=== PATIENT | female | born 1950 | race Caucasian/White ===

== ENCOUNTER 2020-08-15 06:28 | Day surgery (SDC) | payer MEDICARE, SELFPAY ==
[2020-08-09 13:36] VITALS: BMI 30.3
--- NOTE | 2020-08-14 11:50 | HO.ANESPROP2 ---
HPI - Anesthesia Eval Consult details Narrative: 69yo F for colonoscopy PMFSH Past Medical History Medical History Arthritis Dental crowns present Diabetes Elevated cholesterol GERD (gastroesophageal reflux disease) History of fibromyalgia HTN (hypertension) Wears dentures Surgical History Surgical History H/O colonoscopy History of ankle surgery Hx of section Hx of hand surgery Social History Social History Smoking Status: Never smoker Use of substances other than those prescribed or required for medical reasons: No Have you been hit, kicked, punched, or otherwise hurt by someone within the past year? If so, by whom?: No Advance Directives Information Provided: No Recently lost weight without trying: No Meds Allergies Allergy/AdvReac Type Severity Reaction Status Date / Time cortisone Allergy Itching Verified 08/09/20 13:51 Home Medications Medication Instructions Recorded Confirmed Type Januvia 100 mg PO DAILY 08/09/20 08/09/20 History albuterol sulfate [Ventolin HFA] 2 puff INHALATION Q4-6H PRN 08/09/20 08/09/20 History cholecalciferol (vitamin D3) 25 mcg PO DAILY 08/09/20 08/09/20 History [Vitamin D3] fluticasone propionate 220 mcg INHALATION BID 08/09/20 08/09/20 History loratadine 10 mg PO DAILY 08/09/20 08/09/20 History losartan 50 mg PO DAILY 08/09/20 08/09/20 History metformin 1,000 mg PO BID 08/09/20 08/09/20 History rosuvastatin [Crestor] 20 mg PO DAILY 08/09/20 08/09/20 History Exam Exam Date and Time: August 14, 2020 1150 Height,Weight and Vital Signs: Height 5 ft 5.5 in Weight 83.915 kg Pertinent Lab Results Pertinent Lab Results: Laboratory Tests 04/15/20 04/15/20 12:55 12:55 WBC 9.9 Hgb 13.6 Hct 42.0 Plt Count 286 Sodium 139 Potassium 4.6 Chloride 101 BUN 15 Creatinine 1.03 Assessment and Plan Assessment Anesthesia Assessment: Chart Reviewed
[2020-08-15 07:04] VITALS: BP 143/68; PULSE 64; RESP 16; TEMP 35.6; O2SAT 99
[2020-08-15 07:07] VITALS: BMI 29.5
[2020-08-15] MEDS: Lactated Ringers 1,000 ML 100 ML IVCONT (07:07)
--- NOTE | 2020-08-15 07:49 | P.CONAN_ITS ---
[facility] Past Medical History Medical History Arthritis Dental crowns present Diabetes Elevated cholesterol GERD (gastroesophageal reflux disease) History of fibromyalgia HTN (hypertension) Wears dentures Functional capacity: independent ambulation Surgical History Surgical History H/O colonoscopy History of ankle surgery Hx of section Hx of hand surgery Social History Social History Smoking Status: Never smoker Use of substances other than those prescribed or required for medical reasons: No Have you been hit, kicked, punched, or otherwise hurt by someone within the past year? If so, by whom?: No Advance Directives Information Provided: No Recently lost weight without trying: No Meds Allergies Allergy/AdvReac Type Severity Reaction Status Date / Time cortisone Allergy Itching Verified 08/09/20 13:51 Home Medications Medication Instructions Recorded Confirmed Type albuterol sulfate [Ventolin HFA] 2 puff INHALATION Q4-6H PRN 08/09/20 08/09/20 History cholecalciferol (vitamin D3) 25 mcg PO DAILY 08/09/20 08/09/20 History [Vitamin D3] fluticasone propionate [Flovent] 220 mcg INHALATION BID 08/09/20 08/09/20 His tory loratadine 10 mg PO DAILY 08/09/20 08/09/20 History losartan 50 mg PO DAILY 08/09/20 08/09/20 History metformin 1,000 mg PO BID 08/09/20 08/09/20 History naproxen 500 mg PO BID 08/09/20 08/09/20 History rosuvastatin [Crestor] 20 mg PO DAILY 08/09/20 08/09/20 History sitagliptin [Januvia] 100 mg PO DAILY 08/09/20 08/09/20 History Exam Exam Date and Time: August 15, 2020 0749 Height,Weight and Vital Signs: Height 5 ft 5.5 in Weight 81.647 kg Last Vital Signs Temp 96.1 F L 08/15/20 07:04 Pulse 64 08/15/20 07:04 Resp 16 08/15/20 07:04 BP 143/68 H 08/15/20 07:04 Pulse Ox 99 08/15/20 07:04 Airway Mallampati Class: I TM Dist: >3cm Neck ROM: Full Partial: Upper and Lower Loose/Missing/Broken Teeth: No Heart: rrr Lungs: clear Assessment and Plan Final Anesthetic Review NPO: Yes ASA Class: II Final Preanesthetic Review: No Changes in Pt Med Stat, Meds/Allgs Chart Reviewed, Consent Obtained/Reviewed and Anes Risks/Benef Reviewed Patient Risk: Intermediate Procedure Risk: Low Anesthetic Plan Anesthetic Plan: MAC: Disposition: Standard PACU
--- NOTE | 2020-08-15 07:51 | P.HPSUR_ITS ---
Pre-Procedural Eval Section B Chief Complaint: HX OF POLYPS Details of Present Illness: Colon cancer screening/Hx of Tubular adenomas Relevant Family History (Specify if Yes): No Relevant Social History: None Present Medications: see Short Stay Collaborative assessment Medical History: Significant History (Asthma, Diabetes, Hypertension) History of Previous Operations: Relevant previous surgery/procedure and date(s) (Csection x 2) Allergies: Allergies Allergy/AdvReac Type Severity Reaction Status Date / Time cortisone Allergy Itching Verified 08/09/20 13:51 Review of Systems Sugical H&P ROS: Negative: Constitution, Cardiovascular, Respiratory and Gastr ointestinal Exam Surgical H&P Exam: Normal: HEENT, Normal: Heart, Normal: Lungs, Normal: Extremities and Normal: Abdomen Plan Diagnosis/Plan: Unchanged Patient has been examined and remains a candidate for the planned procedure--yes
[2020-08-15 09:14] VITALS: BP 140/69; PULSE 62; RESP 12; TEMP 36.4; O2SAT 97
[2020-08-15 09:15] LABS: Glucose, Whole Blood 112 mg/dL (60-115)
[2020-08-15 09:29] VITALS: BP 135/67; PULSE 58; RESP 13; TEMP 36.4; O2SAT 94
--- NOTE | 2020-08-15 09:34 | PM.PROC ---
Brief Operative Note Date of procedure: 08/15/20 Pre-op diagnosis: Colon cancer screening, hx of Tubular adenomas Post-op diagnosis: other (Colonic polyps, Diverticulosis, 1+ internal hemorrhoids.) Procedure: COLONOSCOPY WITH EXCISIONAL POLYPECTOMIES X 3 (CBF); HSP HEX(ERBE), EPI INJECTION-4CC, SPOT TATOO-3-4CC, RESOLUTION CLIPPING START-8:16--end--9:08 Anesthesia: MAC (MD CAM) Surgeon: Elicia Ambrose Estimated blood loss (mL): 5 Pathology: other (ASC COLON, TRANSVERSE COLON, 25CM AND LARGEST @ 19CM) Condition: stable Disposition: PACU
--- NOTE | 2020-08-15 10:15 | HO.POSTANES ---
Post Anesthesia Evaluation Post Anesthesia Evaluation Vital Signs: Vital Signs Temp Pulse Resp BP Pulse Ox 08/15/20 09:29 97.6 F 58 13 135/67 94 08/15/20 09:14 97.6 F 62 12 140/69 H 97 08/15/20 07:04 96.1 F L 64 16 143/68 H 99 Anesthesia: Monitored Mental Status: Awake Pain Control: Satisfactory Nausea/Vomiting: None Hydration: Adequate Anesthesia-Related Issues: No Anes. Related Issues
--- NOTE | 2020-08-16 02:46 | OP_ITS ---
SURGEON: Elicia Ambrose MD PREOPERATIVE DIAGNOSIS: History of tubular adenomas, specifically in 2006 Dr. Swift did a colonoscopy and one of the polyps was a significant sized tubular adenoma with high-grade dysplasia. Repeat colonoscopy in 2012 done by myself was negative for any polyps. PROCEDURE PERFORMED: Colonoscopy with excisional polypectomies x3 with cold biopsy forceps, hot snare polypectomy using ERBE cautery and hexagonal snare. Epinephrine injection of 4 mL pre-polypectomy. Resolution clipping of polyp base. Spot ink tattooing of 3 mL. ESTIMATED BLOOD LOSS: Minimal. COMPLICATIONS: Without. ANESTHESIA: Monitored by Dr. Finch, anesthesiologist. ASSISTANTS: No photo studio assistant. SPECIMENS: Ascending colon polyp, transverse colon polyp. Polyp at 25 cm, diminutive, and the larger polyp removed requiring multiple modality approach was at 19 cm. POSTOPERATIVE DIAGNOSES: Colonic polyps x4, diverticulosis, 1+ internal hemorrhoids. TRADEMARK PARALEGAL: Dr. Ambrose. FINDINGS: Digital rectal exam revealed no specific lesion. Sphincter tone was adequate. Video colonoscope was introduced without difficulty. It was navigated into the rectosigmoid sigmoid on up through somewhat tortuous sigmoid colon into the descending, transverse, ascending colon down into the cecal cap. Appendiceal orifice was seen. Ileocecal valve was well seen. No mucosal abnormalities were appreciated. Specimens were removed in the locations listed under specimens. Start time of this procedure, 08:16, End time 9:08 a.m. Note, this is a complex procedure with multiple polypectomies and a fairly complex polypectomy removal at 19 cm. COMMENT: Interestingly the complex polyp removed in 2006 was in about the same region of this. It was described as being located approximately 20 cm in the sigmoid. PLAN: Current recommendations to repeat asymptomatic screening will be 5 years. Adjustments may be made to this depending on histology. (All polyps tubular adenomas with no high grade dysplasia.) Followup: patient will be either by Televisit or office visit anywhere from 10 days to 4 weeks. GRAFT OR IMPLANTS: No grafts or implants. Although Resolution clips x2 occasionally is listed as implants they generally fall off within 48 to 72 hours. CONDITION: Postprocedure, stable. Elicia Ambrose MD MEN/MODL / [id number] [facility]ITALMarty
== END 2020-08-15 10:21 | disposition home or self-care (01) ==
PROVIDERS: PCP Internal Medicine; Visit Provider Internal Medicine Gastroenterology
PROC: 0DJD8ZZ Inspection of Lower Intestinal Tract, Via Natural or Artificial Opening Endoscopic (ICD-10-PCS; CPT 45378; principal; 2020-08-15 07:30)
DX: Z12.11 Encounter for screening for malignant neoplasm of colon (principal); Z86.010 Personal history of colon polyps; D12.2 Benign neoplasm of ascending colon; D12.3 Benign neoplasm of transverse colon; D12.5 Benign neoplasm of sigmoid colon; K57.30 Diverticulosis of large intestine without perforation or abscess without bleeding; K64.8 Other hemorrhoids; J45.909 Unspecified asthma, uncomplicated; I10 Essential (primary) hypertension; K21.9 Gastro-esophageal reflux disease without esophagitis; E11.9 Type 2 diabetes mellitus without complications; E78.00 Pure hypercholesterolemia, unspecified; Z79.51 Long term (current) use of inhaled steroids; Z88.8 Allergy status to other drugs, medicaments and biological substances; Z79.84 Long term (current) use of oral hypoglycemic drugs; Z79.899 Other long term (current) drug therapy
CPT/HCPCS: 45385; 45380; 45381; 82947; 88305; J0171

== ENCOUNTER → 2020-09-05 08:25 | Outpatient (BNVA) | payer MEDICARE, SELFPAY | PROVIDERS: PCP Internal Medicine; Referring Provider Internal Medicine; Visit Provider Physician Assistant | DX: D12.2 Benign neoplasm of ascending colon (principal); D12.3 Benign neoplasm of transverse colon; D12.6 Benign neoplasm of colon, unspecified; Z98.890 Other specified postprocedural states | CPT/HCPCS: 99212 ==

== ENCOUNTER 2020-10-10 09:27 | Outpatient (REF) | payer MEDICARE, SELFPAY ==
[2020-10-10 11:02] LABS: Alanine Aminotransferase 23 U/L (0-31); Albumin Level 4.5 g/dL (3.5-5.0); Alkaline Phosphatase 102 U/L (39-117); Anion Gap 14 (12-20); Aspartate Amino Transferase 22 U/L (5-31); Bilirubin Total 0.6 mg/dL (0.0-1.0); Blood Urea Nitrogen 17 mg/dL (9-16); Calcium 9.1 mg/dL (8.4-10.2); Carbon Dioxide 28 mmol/L (22-29); Chloride 102 mmol/L (96-108); Cholesterol 239 mg/dL; Estimated Glomerular Filt Rate 59; Glucose Random 140 mg/dL (60-115); HDL Cholesterol 55 mg/dL; LDL Cholesterol Calculated 135 mg/dl; Potassium 4.8 mmol/l (3.3-5.1); Sodium 139 mmol/L (135-145); Total Protein 7.4 g/dL (6.5-8.0); Triglycerides 249 mg/dL
[2020-10-10 11:31] LABS: Estimated Average Glucose 148 mg/dL; Hemoglobin A1c % 6.8 %
== END 2020-10-10 09:28 | disposition home or self-care (01) ==
LOC: HO.LAB 09:27
PROVIDERS: PCP Internal Medicine; Visit Provider Internal Medicine
DX: E11.9 Type 2 diabetes mellitus without complications (principal); E78.00 Pure hypercholesterolemia, unspecified; M15.9 Polyosteoarthritis, unspecified; Z86.010 Personal history of colon polyps
CPT/HCPCS: 80053; 80061; 83036

== ENCOUNTER 2020-12-31 10:13 | Outpatient (REF) | payer MEDICARE, SELFPAY ==
--- NOTE | ~2020-12-31 | MM_ITS ---
EXAMINATION: MM SCREENING DIGITAL BREAST TOMOSYNTHESIS, BILATERAL CLINICAL INFORMATION: Screening. Asymptomatic. The lifetime risk of breast cancer based on the Tyrer-Cuzick Model is 4%. COMPARISON: Mammography: 11/28/2019, 11/22/2018, 10/16/2017 TECHNIQUE: Digital breast tomosynthesis is performed in both the craniocaudal and mediolateral oblique views along with computer-aided detection (CAD). Synthesized 2D images are generated from the tomosynthesis. Additional left MLO view is provided. FINDINGS: The breasts are heterogeneously dense, which may obscure small masses (ACR BI-RADS breast composition Category c). Breast tissue composition borders on average fibroglandular. Parenchymal pattern is similar to prior studies. There are no significant masses, abnormal calcifications, or other abnormalities. MM/MM tomosynthesis screening BI IMPRESSION: No mammographic evidence of malignancy. ASSESSMENT: BI-RADS 1: Negative RECOMMENDATION: Routine annual mammography screening. This patient's information was entered into a reminder system with a target due date for their next mammogram.
[2020-12-31 11:30] LABS: Estimated Average Glucose 154 mg/dL
[2020-12-31 11:49] LABS: Alanine Aminotransferase 20 U/L (0-31); Albumin Level 4.5 g/dL (3.5-5.0); Alkaline Phosphatase 101 U/L (39-117); Anion Gap 11 (12-20); Aspartate Amino Transferase 21 U/L (5-31); Bilirubin Total 0.9 mg/dL (0.0-1.0); Blood Urea Nitrogen 16 mg/dL (9-16); Calcium 9.2 mg/dL (8.4-10.2); Carbon Dioxide 31 mmol/L (22-29); Chloride 102 mmol/L (96-108); Cholesterol 176 mg/dL; Estimated Glomerular Filt Rate 59; Glucose Random 169 mg/dL (60-115); HDL Cholesterol 57 mg/dL; LDL Cholesterol Calculated 82 mg/dl; Sodium 139 mmol/L (135-145); Total Protein 7.2 g/dL (6.5-8.0); Triglycerides 185 mg/dL
== END 2020-12-31 10:14 | disposition home or self-care (01) ==
LOC: HO.MAMMO 10:13
PROVIDERS: PCP Internal Medicine; Visit Provider Internal Medicine
DX: Z12.31 Encounter for screening mammogram for malignant neoplasm of breast (principal); E11.9 Type 2 diabetes mellitus without complications; E78.2 Mixed hyperlipidemia; I10 Essential (primary) hypertension; Z68.28 Body mass index [BMI] 28.0-28.9, adult
CPT/HCPCS: 36415; 77063; 77067; 80053; 80061; 83036

== ENCOUNTER → 2021-01-24 09:53 | Outpatient (BNVA) | payer MEDICARE, SELFPAY | PROVIDERS: PCP Internal Medicine; Visit Provider Orthopaedic Surgery | DX: M70.62 Trochanteric bursitis, left hip (principal); M70.61 Trochanteric bursitis, right hip | CPT/HCPCS: 20610; 99212; J1100 ==

== ENCOUNTER → 2021-03-12 13:34 | Outpatient (BNVA) | payer MEDICARE, SELFPAY | PROVIDERS: PCP Internal Medicine; Visit Provider Student in an Organized Health Care Education/Training Program | DX: M75.81 Other shoulder lesions, right shoulder (principal); M75.82 Other shoulder lesions, left shoulder | CPT/HCPCS: 99212 ==

== ENCOUNTER 2021-04-09 08:16 | Outpatient (REF) | payer MEDICARE, SELFPAY ==
[2021-04-09 09:06] LABS: MANUAL DIFF FLAG NO
[2021-04-09 09:19] LABS: Basophils Absolute Auto 0.1 X10*3/uL (0.0-0.2); Basophils Percent Auto 1.2 % (0-2); Eosinophils Absolute Auto 0.9 X10*3/uL (0.0-0.4); Eosinophils Percent Auto 8.5 % (0-4); Hematocrit 45.1 % (37-47); Hemoglobin 14.6 g/dl (12.0-16.0); Imm Gran Abs Auto 0.03 X10*3/uL (0.00-0.03); Imm Gran Pct Auto 0.3 % (0.0-0.4); Lymphocytes Absolute Auto 3.6 X10*3/uL (1.2-4.9); Lymphocytes Percent Auto 35.1 % (20-40); Mean Corpuscular HGB Conc 32.4 g/dl (31.0-35.0); Mean Corpuscular Hemoglobin 30.6 pg (27.0-33.0); Mean Corpuscular Volume 94.5 fL (80-98); Mean Platelet Volume 10.9 fL (9.4-12.3); Monocytes Absolute Auto 0.6 X10*3/uL (0.1-1.2); Monocytes Percent Auto 5.6 % (2-11); Neutrophils Percent Auto 49.3 % (45-73); Platelet Count 261 X10*3/uL (160-400); Red Blood Count 4.77 X10*6/uL (4.20-5.50); Red Cell Distribution Width 12.1 % (11.0-16.0); White Blood Count 10.2 X10*3/uL (4.8-10.8)
[2021-04-09 09:42] LABS: Alanine Aminotransferase 21 U/L (0-31); Albumin Level 4.7 g/dL (3.5-5.0); Alkaline Phosphatase 101 U/L (39-117); Anion Gap 16 (12-20); Aspartate Amino Transferase 23 U/L (5-31); Bilirubin Total 1.1 mg/dL (0.0-1.0); Blood Urea Nitrogen 16 mg/dL (9-16); Carbon Dioxide 26 mmol/L (22-29); Chloride 100 mmol/L (96-108); Estimated Glomerular Filt Rate 56; Glucose Random 173 mg/dL (60-115); Sodium 137 mmol/L (135-145); Total Protein 7.8 g/dL (6.5-8.0)
[2021-04-09 10:54] LABS: Creatinine Urine 214.05 mg/dL; Microalbum/Creatinine Ratio Ur 16.3 ug/mg cr
[2021-04-09 10:55] LABS: Estimated Average Glucose 166 mg/dL; Hemoglobin A1c % 7.4 %
== END 2021-04-09 08:17 | disposition home or self-care (01) ==
LOC: HO.LAB 08:16
PROVIDERS: PCP Internal Medicine; Visit Provider Internal Medicine
DX: E11.9 Type 2 diabetes mellitus without complications (principal); E78.2 Mixed hyperlipidemia; H10.44 Vernal conjunctivitis; H92.01 Otalgia, right ear; I10 Essential (primary) hypertension
CPT/HCPCS: 36415; 80053; 82043; 83036; 85025

== ENCOUNTER 2021-08-04 11:28 | Outpatient (REF) | payer MEDICARE, SELFPAY ==
[2021-08-04 12:35] LABS: Estimated Average Glucose 154 mg/dL
[2021-08-04 12:51] LABS: Alanine Aminotransferase 23 U/L (0-31); Albumin Level 4.8 g/dL (3.5-5.0); Alkaline Phosphatase 89 U/L (39-117); Anion Gap 14 (12-20); Aspartate Amino Transferase 22 U/L (5-31); Bilirubin Total 0.8 mg/dL (0.0-1.0); Blood Urea Nitrogen 16 mg/dL (9-16); Calcium 10.1 mg/dL (8.4-10.2); Carbon Dioxide 27 mmol/L (22-29); Chloride 104 mmol/L (96-108); Estimated Glomerular Filt Rate > 60; Glucose Random 137 mg/dL (60-115); Potassium 5.5 mmol/L (3.3-5.1); Sodium 139 mmol/L (135-145); Total Protein 7.8 g/dL (6.5-8.0)
== END 2021-08-04 11:29 | disposition home or self-care (01) ==
LOC: HO.LAB 11:28
PROVIDERS: PCP Internal Medicine; Visit Provider Internal Medicine
DX: E11.9 Type 2 diabetes mellitus without complications (principal); E78.00 Pure hypercholesterolemia, unspecified; I10 Essential (primary) hypertension
CPT/HCPCS: 36415; 80053; 83036

== ENCOUNTER 2021-10-24 08:28 | Outpatient (REF) | payer MEDICARE, SELFPAY | END 2021-10-24 08:29 | disposition home or self-care (01) | LOC: HO.HOSX 08:28 | PROVIDERS: Visit Provider Physician Assistant | DX: Z13.89 Encounter for screening for other disorder (principal) ==

== ENCOUNTER → 2021-11-19 13:23 | Outpatient (BNVA) | payer MEDICARE, SELFPAY | PROVIDERS: PCP Internal Medicine; Visit Provider Physician Assistant | DX: M70.61 Trochanteric bursitis, right hip (principal); M70.62 Trochanteric bursitis, left hip | CPT/HCPCS: 20610; 99212; J1020 ==

== ENCOUNTER 2021-12-17 12:35 | Outpatient (REF) | payer MEDICARE, SELFPAY | END 2021-12-17 12:36 | disposition home or self-care (01) | LOC: HO.HOSX 12:35 | PROVIDERS: Visit Provider Physician Assistant | DX: Z13.89 Encounter for screening for other disorder (principal) ==

== ENCOUNTER 2022-01-16 10:38 | Outpatient (REF) | payer MEDICARE, SELFPAY ==
--- NOTE | ~2022-01-16 | MM_ITS ---
EXAMINATION: MM SCREENING DIGITAL BREAST TOMOSYNTHESIS, BILATERAL CLINICAL INFORMATION: Screening. Asymptomatic. The lifetime risk of breast cancer based on the Tyrer-Cuzick Model is 4%. COMPARISON: Mammography: 12/31/2020, 11/28/2019, 11/22/2018 TECHNIQUE: Digital breast tomosynthesis is performed in both the craniocaudal and mediolateral oblique views along with computer-aided detection (CAD). Synthesized 2D images are generated from the tomosynthesis. FINDINGS: The breasts are heterogeneously dense, which may obscure small masses (ACR BI-RADS breast composition Category c). There are no significant masses, abnormal calcifications, or other abnormalities. Breast tissue composition borders on average fibroglandular. Parenchymal pattern is similar to prior studies. No significant changes. MM/MM tomosynthesis screening BI IMPRESSION: No mammographic evidence of malignancy. ASSESSMENT: BI-RADS 1: Negative RECOMMENDATION: Routine annual mammography screening. This patient's information was entered into a reminder system with a target due date for their next mammogram.
== END 2022-01-16 10:39 | disposition home or self-care (01) ==
LOC: HO.MAMMO 10:38
PROVIDERS: Visit Provider Internal Medicine
DX: Z12.31 Encounter for screening mammogram for malignant neoplasm of breast (principal)
CPT/HCPCS: 77063; 77067

== ENCOUNTER 2022-02-04 13:39 | Outpatient (REF) | payer MEDICARE, SELFPAY ==
[2022-02-04 14:19] LABS: Estimated Average Glucose 220 mg/dL; Hemoglobin A1c % 9.3 %
[2022-02-04 14:31] LABS: Alanine Aminotransferase 73 U/L (0-31); Albumin Level 4.5 g/dL (3.5-5.0); Alkaline Phosphatase 126 U/L (39-117); Anion Gap 12 (12-20); Aspartate Amino Transferase 53 U/L (5-31); Blood Urea Nitrogen 15 mg/dL (9-16); Calcium 9.7 mg/dL (8.4-10.2); Carbon Dioxide 29 mmol/L (22-29); Chloride 99 mmol/L (96-108); Estimated Glomerular Filt Rate 51; Glucose Random 242 mg/dL (60-115); Sodium 135 mmol/L (135-145); Total Protein 7.6 g/dL (6.5-8.0)
== END 2022-02-04 13:40 | disposition home or self-care (01) ==
LOC: HO.LAB 13:39
PROVIDERS: PCP Internal Medicine; Visit Provider Internal Medicine
DX: E11.65 Type 2 diabetes mellitus with hyperglycemia (principal); S00.262D Insect bite (nonvenomous) of left eyelid and periocular area, subsequent encounter
CPT/HCPCS: 36415; 80053; 83036

== ENCOUNTER 2022-03-04 11:01 | Outpatient (REF) | payer MEDICARE, SELFPAY ==
--- NOTE | ~2022-03-04 | XR_ITS ---
EXAMINATION: XR BILATERAL HIPS WITH AP PELVIS CLINICAL INFORMATION: Pain COMPARISON: Previous x-rays 2015 and 2019 TECHNIQUE: AP view of the pelvis and 2 views of each hip were obtained. FINDINGS: Bone alignment is normal. No fracture or dislocation is seen. There is bilateral hip arthritis with osteophyte formation, right greater than left. Bones of the pelvis are normal. Soft tissues are normal.. XR/XR hips MELITA min 3V IMPRESSION: Bilateral hip arthritis, right greater than left.
--- NOTE | ~2022-03-04 | XR_ITS ---
EXAMINATION: XR SHOULDER, LEFT CLINICAL INFORMATION: Pain COMPARISON: Previous x-ray December 2014 TECHNIQUE: Three views of the left shoulder. FINDINGS: Bone alignment is normal. No fracture or dislocation is seen. The glenohumeral joint is normal. There is arthritis at the acromioclavicular joint. There is an undersurface acromial osteophyte. Soft tissues are unremarkable. XR/XR shoulder LT min 2V IMPRESSION: Degenerative changes.
--- NOTE | ~2022-03-04 | XR_ITS ---
EXAMINATION: XR SHOULDER, RIGHT CLINICAL INFORMATION: Pain COMPARISON: None TECHNIQUE: 3 views of the right shoulder. FINDINGS: Bone alignment is normal. No fracture or dislocation is seen. There are degenerative changes at the acromioclavicular joint and small undersurface acromial osteophyte. There are mild degenerative changes at the glenohumeral joint. Soft tissues are normal. XR/XR shoulder RT min 2V IMPRESSION: Degenerative changes.
== END 2022-03-04 11:02 | disposition home or self-care (01) ==
LOC: HO.XRAY 11:01
PROVIDERS: Absent Provider Physician Assistant; PCP Internal Medicine; Visit Provider Internal Medicine
DX: M16.0 Bilateral primary osteoarthritis of hip (principal); M25.511 Pain in right shoulder; M25.512 Pain in left shoulder
CPT/HCPCS: 73030; 73522

== ENCOUNTER → 2022-06-15 14:46 | Outpatient (BNVA) | payer MEDICARE, SELFPAY | PROVIDERS: PCP Internal Medicine; Visit Provider Internal Medicine Rheumatology | DX: M75.81 Other shoulder lesions, right shoulder (principal); M75.82 Other shoulder lesions, left shoulder | CPT/HCPCS: 20610; 99212 ==

== ENCOUNTER 2022-06-24 14:19 | Outpatient (REF) | payer MEDICARE, SELFPAY ==
[2022-06-24 14:48] LABS: MANUAL DIFF FLAG NO
[2022-06-24 15:00] LABS: Basophils Absolute Auto 0.1 X10*3/uL (0.0-0.2); Basophils Percent Auto 0.4 % (0-2); Eosinophils Percent Auto 0.2 % (0-4); Hemoglobin 14.9 g/dl (12.0-16.0); Imm Gran Abs Auto 0.11 X10*3/uL (0.00-0.03); Imm Gran Pct Auto 0.6 % (0.0-0.4); Lymphocytes Absolute Auto 3.6 X10*3/uL (1.2-4.9); Lymphocytes Percent Auto 18.4 % (20-40); Mean Corpuscular HGB Conc 33.1 g/dl (31.0-35.0); Mean Corpuscular Hemoglobin 30.4 pg (27.0-33.0); Mean Corpuscular Volume 91.8 fL (80.0-98.0); Mean Platelet Volume 10.6 fL (9.4-12.3); Monocytes Absolute Auto 1.2 X10*3/uL (0.1-1.2); Monocytes Percent Auto 6.1 % (2-11); Neutrophils Absolute Auto 14.5 x10*3/uL (2.0-8.3); Neutrophils Percent Auto 74.3 % (45-73); Platelet Count 317 X10*3/uL (160-400); Red Cell Distribution Width 12.2 % (11.0-16.0); White Blood Count 19.5 X10*3/uL (4.8-10.8)
[2022-06-24 15:29] LABS: Creatinine Urine 208.99 mg/dL; Microalbum/Creatinine Ratio Ur 86.1 ug/mg cr
[2022-06-24 15:29] LABS: Alanine Aminotransferase 41 U/L (0-31); Albumin Level 4.9 g/dL (3.5-5.0); Alkaline Phosphatase 112 U/L (39-117); Anion Gap 19 (12-20); Aspartate Amino Transferase 30 U/L (5-31); Bilirubin Total 0.9 mg/dL (0.0-1.0); Blood Urea Nitrogen 28 mg/dL (9-16); Calcium 10.1 mg/dL (8.4-10.2); Carbon Dioxide 23 mmol/L (22-29); Chloride 100 mmol/L (96-108); Cholesterol 259 mg/dL; Estimated Glomerular Filt Rate 38; Glucose Random 178 mg/dL (60-115); HDL Cholesterol 62 mg/dL; LDL Cholesterol Calculated 155 mg/dl; Potassium 5.4 mmol/L (3.3-5.1); Sodium 137 mmol/L (135-145); Total Protein 8.3 g/dL (6.5-8.0); Triglycerides 210 mg/dL
[2022-06-24 15:39] LABS: Estimated Average Glucose 186 mg/dL; Hemoglobin A1c % 8.1 %
[2022-06-24 15:45] LABS: Thyroid Stimulating Hormone 1.74 uIU/mL (0.32-4.0)
== END 2022-06-24 14:20 | disposition home or self-care (01) ==
LOC: HO.LAB 14:19
PROVIDERS: PCP Internal Medicine; Visit Provider Internal Medicine
DX: Z00.00 Encounter for general adult medical examination without abnormal findings (principal); E11.9 Type 2 diabetes mellitus without complications; I10 Essential (primary) hypertension; E78.00 Pure hypercholesterolemia, unspecified
CPT/HCPCS: 36415; 80053; 80061; 82043; 83036; 84443; 85025

== ENCOUNTER 2022-08-05 11:00 | Outpatient (RCR) | payer MEDICARE, OTHER, SELFPAY ==
[2022-07-13 10:10] VITALS: BP 149/88; PULSE 67; O2SAT 99
--- NOTE | 2022-07-13 12:13 | MHC.PT.EP ---
[facility] [place] Office [place] Office [place] Office [address] Chris Chapa [address] [phone] F: [phone] F: [phone] F: [phone] F: [phone] Physical Therapy Plan of Care Date of Evaluation: Date of Surgery: Diagnosis: BILAT SHOULDER LESIONS Assessment: 71 YO FEMALE REF TO PT WITH BILAT SH LESIONS, Rt > Lt- PROGRESSIVE x 5 YEARS AND TREATED PREVIOUSLY W PT AND INJECTIONS. MOST RECENT SH INJECTIONS , BILAT, ON 06/15/22. Pt IS RIGHT HAND DOMINANT AND SHE IS CURRENTLY RESIDING W HER SON- SHE NOTES HER SON ASSISTS HER WITH GROCERIES/ LIFTING/ MORE DEMANDING ADLs. OBJECTIVE DATA INCLUDES LIMITED CERV AROM/ MELITA SH ROM-Rt WORSE THAN Lt, MELITA POST RC/ SCAP MM WEAKNESS, DECR POSTURAL AWARENESS, AND PAIN IN Rt CERV/ PROX UE AND LEFT SH. FUNCTIONALLY, Pt POSES Rt UE AT SIDE W ELBOW FLEXED, SHE HAS DIFFIC SLEEPING AND HAS SIGNIF DIFFIC W IN/OOB MECHANICS, BATHING, LIFTING W Rt UE, WASHING HER HAIR, AND HOUSEWORK. Pt WOULD BENEFIT FROM PT TO ADDRESS THE ABOVE FINDINGS AND EASE BILAT SH PAIN WHILE MONITORING CERVICAL REGION ORIGIN OF Rt UE SXS. Frequency and Duration: The patient will be seen 2 x WK x 5 WKS Short Term Goals: *Pt'S CERV/ MELITA SH PAIN DECR TO 3-4 /10 W REG ADLs *Pt INDEP SELF-CORRECT POSTURE TO REDUCE CERVICAL AND MELITA SH MECH STRESS *Pt DEMON IMPROVED AAROM-> AROM MELITA SH AND IMPROVE CERV AROM *Pt DEMON INDEP BED MOB Retirement Goals: *Pt INDEP HEP PROGR AND SELF-SX MGMT STRATEGIES FOR CERV / MELITA SH Pt PERFORM REG ADLs W APPROP BODY MECH Pt ACHIEVE WFL AROM AND FUNCTIONAL STRENGTH IN MELITA SH COMPLEX Treatment Plan: Modalities to reduce pain, spasms and effusion. Manual therapy to restore motion and function. Therapeutic exercise to improve strength and flexibility. Neuromuscular re-education for posture and balance. Therapeutic activities to return to functional activities of daily living. Electronically signed by: Umu West,PT Please sign and return to therapist. Thank you for your referral.
--- NOTE | 2022-09-17 09:58 | MHC.PT.DC ---
[facility] [place] Office [place] Office [place] Office [address] Chris Chapa [address] [phone] F: [phone] F: [phone] F: [phone] F: [phone] Physical Therapy Discharge Report Diagnosis: BILAT SHOULDER LESIONS Date of Surgery: Date of Evaluation: 07/13/22 Date of Discharge: 08/10/22 Treatments to Date: 8 Cancellations to Date: 1 No Shows to Date: Discharge Status: Improved Function Patient Elected to Stop Discharge Summary: Pt WAS MOTIVATED AND PROGRESSING WELL IN PT, SHE HAS A THOROUGH HEP AND HER SXS WERE RESOLVING IN BILAT SH HER STRENGTH AND POSTURAL AWARENESS IMPROVED. SHE CANC HER LAST PT APPTS AND THEREFORE, A FORMAL REASSESSMENT WAS NOT PERFORMED. Electronically signed by: RAZ HORVATH,PT Please sign and return to therapist. Thank you for your referral.
== END 2022-09-17 09:59 | disposition home or self-care (01) ==
LOC: HO.PT 11:00
PROVIDERS: PCP Internal Medicine; Visit Provider Internal Medicine Rheumatology
DX: M75.81 Other shoulder lesions, right shoulder (principal); M75.82 Other shoulder lesions, left shoulder
CPT/HCPCS: 97162; 97530

== ENCOUNTER 2022-11-11 09:40 | Outpatient (REF) | payer MEDICARE, OTHER, SELFPAY ==
[2022-11-11 11:08] LABS: Estimated Average Glucose 148 mg/dL; Hemoglobin A1c % 6.8 %
[2022-11-11 11:26] LABS: Alanine Aminotransferase 27 U/L (0-31); Albumin Level 4.4 g/dL (3.5-5.0); Alkaline Phosphatase 93 U/L (39-117); Anion Gap 16 (12-20); Aspartate Amino Transferase 31 U/L (5-31); Bilirubin Total 0.7 mg/dL (0.0-1.0); Blood Urea Nitrogen 18 mg/dL (9-16); Calcium 9.6 mg/dL (8.4-10.2); Carbon Dioxide 27 mmol/L (22-29); Chloride 104 mmol/L (96-108); Cholesterol 207 mg/dL; Estimated Glomerular Filt Rate 47; Glucose Fasting 148 mg/dL (60-99); HDL Cholesterol 47 mg/dL; LDL Cholesterol Calculated 119 mg/dl; Potassium 4.7 mmol/L (3.3-5.1); Sodium 142 mmol/L (135-145); Total Protein 7.1 g/dL (6.5-8.0); Triglycerides 209 mg/dL
== END 2022-11-11 09:41 | disposition home or self-care (01) ==
LOC: HO.10HDL 09:40
PROVIDERS: Visit Provider Internal Medicine
DX: E11.65 Type 2 diabetes mellitus with hyperglycemia (principal); E78.00 Pure hypercholesterolemia, unspecified; N18.9 Chronic kidney disease, unspecified; R74.01 Elevation of levels of liver transaminase levels
CPT/HCPCS: 36415; 80053; 80061; 83036

== ENCOUNTER 2023-01-20 10:27 | Outpatient (REF) | payer MEDICARE, OTHER, SELFPAY ==
--- NOTE | ~2023-01-20 | MM_ITS ---
EXAMINATION: MM SCREENING DIGITAL BREAST TOMOSYNTHESIS, BILATERAL CLINICAL INFORMATION: Screening. Asymptomatic. The lifetime risk of breast cancer based on the Tyrer-Cuzick Model is 7%. COMPARISON: Mammography: 01/16/2022, 12/31/2020, 11/28/2019, 11/22/2018 TECHNIQUE: Digital breast tomosynthesis is performed in both the craniocaudal and mediolateral oblique views along with computer-aided detection (CAD). Synthesized 2D images are generated from the tomosynthesis. FINDINGS: The breasts are heterogeneously dense, which may obscure small masses (ACR BI-RADS breast composition Category c). There are no significant masses, abnormal calcifications, or other abnormalities. Parenchymal pattern is similar to prior studies. There is no developing density or architectural abnormality. The axilla and skin contours are unremarkable. No significant changes. MM/MM tomosynthesis screening BI IMPRESSION: No mammographic evidence of malignancy. ASSESSMENT: BI-RADS 1: Negative RECOMMENDATION: Routine annual mammography screening. This patient's information was entered into a reminder system with a target due date for their next mammogram.
== END 2023-01-20 10:28 | disposition home or self-care (01) ==
LOC: HO.MAMMO 10:27
PROVIDERS: PCP Internal Medicine; Visit Provider Internal Medicine
DX: Z12.31 Encounter for screening mammogram for malignant neoplasm of breast (principal)
CPT/HCPCS: 77063; 77067

== ENCOUNTER 2023-02-12 11:04 | Outpatient (REF) | payer MEDICARE, OTHER, SELFPAY ==
[2023-02-12 13:13] LABS: Alanine Aminotransferase 30 U/L (0-31); Albumin Level 4.7 g/dL (3.5-5.0); Alkaline Phosphatase 101 U/L (39-117); Anion Gap 15 (12-20); Aspartate Amino Transferase 28 U/L (5-31); Bilirubin Total 0.8 mg/dL (0.0-1.0); Blood Urea Nitrogen 20 mg/dL (9-16); Calcium 10.5 mg/dL (8.4-10.2); Carbon Dioxide 29 mmol/L (22-29); Chloride 101 mmol/L (96-108); Estimated Glomerular Filt Rate 51; Glucose Random 142 mg/dL (60-115); Potassium 5.5 mmol/L (3.3-5.1); Sodium 139 mmol/L (135-145); Total Protein 7.7 g/dL (6.5-8.0); Vitamin D 25-OH Total 44.6 ng/mL (>30)
[2023-02-12 13:17] LABS: Estimated Average Glucose 148 mg/dL; Hemoglobin A1c % 6.8 %
== END 2023-02-12 11:05 | disposition home or self-care (01) ==
LOC: HO.LAB 11:04
PROVIDERS: PCP Internal Medicine; Visit Provider Internal Medicine
DX: E11.9 Type 2 diabetes mellitus without complications (principal); E78.00 Pure hypercholesterolemia, unspecified; M25.512 Pain in left shoulder; M51.16 Intervertebral disc disorders with radiculopathy, lumbar region
CPT/HCPCS: 36415; 80053; 82306; 83036

== ENCOUNTER 2023-05-06 11:14 | Outpatient (AMB) | payer MEDICARE, SELFPAY ==
[2023-05-06 11:20] VITALS: BP 136/71; PULSE 93; RESP 16; TEMP 36.8; O2SAT 98; BMI 30.6
--- NOTE | 2023-05-06 11:20 | MHC.OFFVIS ---
Intake Vital Signs 05/06/23 11:20 Height 5 ft 5 in Weight 183 lb 10.321 oz BMI 30.6 BP 136/71 Blood Pressure Location Lt brachial Position Sitting Respiration 16 Pulse 93 Pulse Source Pulse Oximeter Temp 98.3 F Temp Source Tympanic Pulse Oximetry (%) 98 Oxygen Delivery Method Room Air Intake Visit Reasons: Knee pain/shoulder Transplant Registered Nurse Required: Yes Accompanied by: mohit Allergies lisinopril Allergy (Severe, Verified 05/06/23 11:24) Angioedema atorvastatin Allergy (Intermediate, Verified 05/06/23 11:24) myalgias losartan Allergy (Intermediate, Verified 05/06/23 11:24) cough Medication List - Last Reconciled 05/06/23 by Cecilia Liang RN albuterol sulfate 90 mcg/actuation (Ventolin HFA) 2 puffs inhalation Q4-6H PRN cholecalciferol (vitamin D3) (Vitamin D3) 25 mcg PO DAILY diclofenac sodium 1% 2 grams topical BID PRN fluticasone propionate 220 mcg/actuation 220 mcg inhalation BID loratadine 10 mg PO DAILY metformin 1,000 mg PO BID naproxen 500 mg PO BID rosuvastatin (Crestor) 40 mg PO DAILY sitagliptin phosphate (Januvia) 100 mg PO DAILY HPI HPI Comments History of Present Illness Details The patient returns with complaints of pain in multiple areas. The iPad translating device assists us with the history and physical. I had last seen her about a year ago. She had received corticosteroid injections at that point in both subacromial spaces. There was improvement she thinks up until the beginning of the year. She was having more hip pain and shoulder pain in the spring and did receive a cortisone injection she said in the left shoulder from her primary doctor. There was also an injection given in the left hip but she claims it was not a corticosteroid. That injection enabled her to be functional enough to visit [place] in February. Now she is complaining of pain again in that hip. It is worse with walking or lying on the hip. It seems to be in the buttock region and radiates laterally. There are similar pains, not quite severe on the right side. Patient has pain in the right shoulder, right hand, and lower back. She also has pain in some of the fingers, knees, ankles and feet although these are no where near as severe. She denies any complications or side effects from previous corticosteroid injections. She is taking some naproxen, 500 mg b.i.d. p.r.n. without much improvement particularly for the left hip pain. FORMERLY [facility], [facility] Medical History Arthritis Dental crowns present Diabetes Elevated cholesterol GERD (gastroesophageal reflux disease) History of fibromyalgia HTN (hypertension) Tubular adenoma of colon Wears dentures Surgical History (Reviewed 05/06/23 @ 11: by Cecilia Liang RN) H/O colonoscopy History of ankle surgery Hx of section Hx of hand surgery Family History (Reviewed 05/06/23 @ 11: by Cecilia Liang RN) Father No family history of colorectal cancer Social History (Reviewed 05/06/23 @ 11: by Cecilia Liang RN) Patient Tobacco Use Status: Never used Tobacco e-Cigarette/Vaping Use: Never Used Current occupational status: retired Current occupation: [employer] Review of Systems Const Details: Negative for appetite change, weight change, fever, chills, malaise and fatigue Eyes Details: Negative for vision change, dry eyes,headaches and dizziness ENT Details: Negative for hearing change, tinnitus, oral ulcer, nose bleeds and oral dryness. Card Details: Negative chest pain, edema and syncope Resp Details: Negative for SOB, cough and wheezing GI Details: Negative indigestion/heartburn, nausea, abdominal pain, bowel changes, diarrhea, constipation and bloody stool. Psych Details: Negative for anxiety, depression and stress Endo Details: Negative for polyuria and polydypsia Kenny/Lymph Details: Negative for excessive bruising or bleeding. Physical Exam Vital Signs: Last Vital Signs Temp 98.3 F 05/06/23 11:20 Pulse 93 05/06/23 11:20 Resp 16 05/06/23 11:20 BP 136/71 05/06/23 11:20 Pulse Ox 98 05/06/23 11:20 Oxygen Delivery Method Room Air 05/06/23 11:20 BMI result Body Mass Index 30.6 APPEARANCE: Patient in no acute distress EYES no redness, pupils equal and reactive to light, eyelids normal. No temporal artery tenderness, redness or swelling. EXTREMITIES:? No edema, no calf tenderness, normal peripheral pulses. JOINT EXAM:.?? Cervical Spine:? There is mild pain with lateral rotation at 10 degrees to either side or lateral flexion at 10 degrees to either side.? Most of this is referred to the top of the right trapezius.? There is tenderness along the muscle but not in the posterior cervical spine.? She does not seem to have any weakness or loss of reflexes in the upper extremities. Thoracic Spine:.? No scoliosis.? No tenderness on palpation. Lumbar Spine:.? Alignment normal.? Full range of motion without pain, no tenderness. Chest Wall:.? No tenderness, swelling, increased warmth or erythema. Hands:.? Right: Slight bony enlargement with mild tenderness at the base of the thumb. There is also some tenderness without swelling at the thumb MCP and the thumb IP. There is some minimal nontender bony enlargement at the PIP joints. Left: Mild nontender bony enlargement at the base of the thumb. Normal pain-free range of motion with some slight PIP bony enlargement but without pain.? The other hand joints are without tenderness, swelling, increased warmth or erythema. Wrists:.? Right: Mild pain with flexion extension at 60 degrees with some slight tenderness but no swelling. Left: Slight discomfort with extremes of normal range of motion. No tenderness, swelling, increased warmth or erythema. Elbows:. Normal pain-free range of motion without tenderness, swelling, increased warmth or erythema. Shoulders:.??Right: Moderate pain with abduction at 90 degrees or with any attempted internal or external rotation.? There is [id number] anterior, subacromial and posterior tenderness.? There may be some abductor weakness but there is no swelling or adenopathy.? Acromioclavicular joint is prominent has mild tenderness.? Left:? Mild discomfort with abduction 135 degrees or with more than 10 degrees of internal or external rotation.? There is slight anterior tenderness without adenopathy or abductor weakness. Hips: Right: There is lumbar, lateral, and buttock pain with 10 degrees of internal rotation or abduction at 15 degrees. There is no groin pain with motion. Left: Moderate buttock, lateral, and lumbar pain with more than 10 degrees of internal or external rotation. Hip bursa: Moderate left and mild right trochanteric tenderness. Knees:.?? Normal pain-free range of motion with mild patellofemoral crepitus. There is no knee pain with motion. There is some slight medial tenderness bilaterally without effusion, soft tissue swelling, increased warmth or erythema.? Ankles:.? Normal pain-free range of motion without tenderness, swelling, increased warmth or erythema. Feet:.? Normal pain-free range of motion without tenderness, swelling, increased warmth or erythema. Tender points:.? Mild the tenderness to digital palpation at the occiput, trapezius, second rib, lateral epicondyle, knees, greater trochanter and gluteal area bilaterally. ? Office Procedures Joint Injection/Drain Joint Injection/Drain Primary Site: right shoulder Secondary Site: other Injected: 80 mg of, Kenalog, with 3 mL of and 1% plain lidocaine Coding Details: With the patient's consent, the left lateral hip area was prepped with for Chloraprep and alcohol. Under a topical ethyl chloride spray the tender area over the trochanteric region was injected with 40 mg of Kenalog and 1 cc of 1% lidocaine. The patient tolerated the procedure with no adverse effects. The right shoulder was prepped ChloraPrep and alcohol. The subacromial space was injected with 40 mg of triamcinolone and 1 cc of lidocaine. Patient tolerated the procedure well no apparent immediate side effects. 67010 - Large joint Procedure code (CPT) selection complete Results Reviewed Results Reviewed: [address] [address] XRay Report Signed Patient: Maria Elena Lyons MR#: [id number] : 1950 Acct:[id number] Age/Sex: 71 / F ADM Date: 03/04/[address]: Bhumika Correa MD Ordering Physician: Bhumika Correa MD Date of Service: 03/04/22 Procedure(s): XR shoulder RT min 2V Accession Number(s): [id number] cc: Bhumika Correa MD~ EXAMINATION: XR SHOULDER, RIGHT CLINICAL INFORMATION: Pain? COMPARISON: None? TECHNIQUE: 3 views of the right shoulder. FINDINGS: Bone alignment is normal. No fracture or dislocation is seen. There are degenerative changes at the acromioclavicular joint and small undersurface acromial osteophyte. There are mild degenerative changes at the glenohumeral joint. Soft tissues are normal.? XR/XR shoulder RT min 2V IMPRESSION: Degenerative changes. Dictated By: Nyla Robb MD Assessment & Plan Assessment & Plan (1) History of fibromyalgia: Code(s): Z87.39 - Personal history of other diseases of the musculoskeletal system and connective tissue (2) Tendinitis of both rotator cuffs: Code(s): M75.81 - Other shoulder lesions, right shoulder; M75.82 - Other shoulder lesions, left shoulder (3) Osteoarthritis of hands, bilateral: Code(s): M19.041 - Primary osteoarthritis, right hand; M19.042 - Primary osteoarthritis, left hand (4) Osteoarthritis of hips, bilateral: Comment: Mild on x-ray 2021 Code(s): M16.0 - Bilateral primary osteoarthritis of hip (5) Trochanteric bursitis of both hips: Code(s): M70.61 - Trochanteric bursitis, right hip; M70.62 - Trochanteric bursitis, left hip Plan The patient has many tender points consistent with underlying fibromyalgia. Radiographs have demonstrated some mild hip osteoarthritis. It would appear that the lateral hip tenderness on the left is some trochanteric bursitis which is to some degree present on the right as well. She has again recurrent tendinitis in the shoulder suggesting perhaps rotator cuff arthropathy but least rotator cuff tendinitis. She wants to have injections again and wants them sooner than every 4 months. I explained to her that we would try to limit that frequency to reduce her corticosteroid exposure. Today we decided on a corticosteroid injection in the right shoulder and left trochanteric bursa. We reviewed potential side effects of such injections. With the patient's consent, the left lateral hip area was prepped with for Chloraprep and alcohol. Under a topical ethyl chloride spray the tender area over the trochanteric region was injected with 40 mg of Kenalog and 1 cc of 1% lidocaine. The patient tolerated the procedure with no adverse effects. The right shoulder was prepped ChloraPrep and alcohol. The subacromial space was injected with 40 mg of triamcinolone and 1 cc of lidocaine. Patient tolerated the procedure well no apparent immediate side effects. The patient tolerated the procedure without any acute adverse effects. She will see how these work out over the next few months. I suspect some of her hip pain is referred from lumbar osteoarthritis. Therefore if the hip pain continues we will suggest she see pain management for further treatment. We would will see her back in 4 months to see if at that point she might benefit from more corticosteroid injections. Orders: Orders AMB Joint Injection/Aspiration Today M70.61 - Trochanteric bursitis, right hip, M70.62 - Trochanteric bursitis, left hip, M75.81 - Other shoulder lesions, right shoulder, M75.82 - Other shoulder lesions, left shoulder Coding Level of Care Code Est Pt Level 3 (23142) Diagnoses History of fibromyalgia Z87.39 Tendinitis of both rotator cuffs M75.81; M75.82 Osteoarthritis of hands, bilateral M19.041; M19.042 Osteoarthritis of hips, bilateral M16.0 Trochanteric bursitis of both hips M70.61; M70.62 CPT Codes Coding - 15990 Large joint: 23852 - Large joint ([id number])
== END 2023-05-06 12:01 | disposition home or self-care (01) ==
PROVIDERS: PCP Internal Medicine; Visit Provider Internal Medicine Rheumatology
DX: M75.81 Other shoulder lesions, right shoulder (principal); M75.82 Other shoulder lesions, left shoulder; M70.62 Trochanteric bursitis, left hip; M70.61 Trochanteric bursitis, right hip; M19.042 Primary osteoarthritis, left hand; M19.041 Primary osteoarthritis, right hand; M16.0 Bilateral primary osteoarthritis of hip; Z87.39 Personal history of other diseases of the musculoskeletal system and connective tissue
CPT/HCPCS: 20610; 99213

== ENCOUNTER → 2023-05-06 11:14 | Outpatient (BNVA) | payer MEDICARE, OTHER, SELFPAY | PROVIDERS: PCP Internal Medicine; Visit Provider Internal Medicine Rheumatology | DX: M75.81 Other shoulder lesions, right shoulder (principal); M16.0 Bilateral primary osteoarthritis of hip; M70.62 Trochanteric bursitis, left hip; M70.61 Trochanteric bursitis, right hip; M75.82 Other shoulder lesions, left shoulder; M19.041 Primary osteoarthritis, right hand; M19.042 Primary osteoarthritis, left hand; Z87.39 Personal history of other diseases of the musculoskeletal system and connective tissue | CPT/HCPCS: 20610; 99212 ==

== ENCOUNTER 2023-05-17 12:26 | Outpatient (REF) | payer MEDICARE, OTHER, SELFPAY ==
[2023-05-17 14:49] LABS: Estimated Average Glucose 154 mg/dL
[2023-05-17 15:06] LABS: Alanine Aminotransferase 32 U/L (0-31); Albumin Level 4.6 g/dL (3.5-5.0); Alkaline Phosphatase 95 U/L (39-117); Anion Gap 17 (12-20); Aspartate Amino Transferase 25 U/L (5-31); Blood Urea Nitrogen 34 mg/dL (9-16); Calcium 9.7 mg/dL (8.4-10.2); Carbon Dioxide 21 mmol/L (22-29); Chloride 105 mmol/L (96-108); Estimated Glomerular Filt Rate 35; Glucose Random 144 mg/dL (60-115); Potassium 4.3 mmol/L (3.3-5.1); Sodium 139 mmol/L (135-145); Total Protein 7.9 g/dL (6.5-8.0)
== END 2023-05-17 12:27 | disposition home or self-care (01) ==
LOC: HO.LAB 12:26
PROVIDERS: PCP Internal Medicine; Visit Provider Internal Medicine
DX: M16.0 Bilateral primary osteoarthritis of hip (principal); M70.62 Trochanteric bursitis, left hip
CPT/HCPCS: 36415; 80053; 83036

== ENCOUNTER 2023-08-18 14:31 | Outpatient (REF) | payer MEDICARE, SELFPAY ==
[2023-08-18 14:40] LABS: MANUAL DIFF FLAG NO
[2023-08-18 15:13] LABS: Basophils Absolute Auto 0.1 X10*3/uL (0.0-0.2); Eosinophils Absolute Auto 0.1 X10*3/uL (0.0-0.4); Hematocrit 42.2 % (37.0-47.0); Hemoglobin 14.2 g/dl (12.0-16.0); Imm Gran Abs Auto 0.03 X10*3/uL (0.00-0.03); Imm Gran Pct Auto 0.2 % (0.0-0.4); Lymphocytes Absolute Auto 3.4 X10*3/uL (1.2-4.9); Lymphocytes Percent Auto 27.4 % (20-40); Mean Corpuscular HGB Conc 33.6 g/dl (31.0-35.0); Mean Corpuscular Hemoglobin 31.3 pg (27.0-33.0); Mean Platelet Volume 10.6 fL (9.4-12.3); Monocytes Absolute Auto 0.7 X10*3/uL (0.1-1.2); Monocytes Percent Auto 5.6 % (2-11); Neutrophils Absolute Auto 7.9 x10*3/uL (2.0-8.3); Neutrophils Percent Auto 64.8 % (45-73); Platelet Count 300 X10*3/uL (160-400); Red Blood Count 4.54 X10*6/uL (4.20-5.50); Red Cell Distribution Width 11.9 % (11.0-16.0); White Blood Count 12.2 X10*3/uL (4.8-10.8)
[2023-08-18 15:18] LABS: Estimated Average Glucose 143 mg/dL; Hemoglobin A1c % 6.6 % (<6.0)
[2023-08-18 15:59] LABS: Alanine Aminotransferase 29 U/L (0-31); Albumin Level 4.8 g/dL (3.5-5.0); Alkaline Phosphatase 100 U/L (39-117); Anion Gap 16 (12-20); Aspartate Amino Transferase 34 U/L (5-31); Bilirubin Total 1.1 mg/dL (0.0-1.0); Blood Urea Nitrogen 13 mg/dL (9-16); Calcium 10.7 mg/dL (8.4-10.2); Carbon Dioxide 26 mmol/L (22-29); Chloride 102 mmol/L (96-108); Cholesterol 244 mg/dL (<200); Estimated Glomerular Filt Rate 41; Glucose Random 122 mg/dL (60-115); HDL Cholesterol 55 mg/dL (>40); LDL Cholesterol Calculated 144 mg/dL (<100); Potassium 4.6 mmol/L (3.3-5.1); Sodium 139 mmol/L (135-145); Total Protein 8.5 g/dL (6.5-8.0); Triglycerides 228 mg/dL (<150)
[2023-08-18 17:15] LABS: Creatinine Urine 356.03 mg/dL; Microalbum/Creatinine Ratio Ur 42.4 ug/mg cr (<30)
== END 2023-08-18 14:32 | disposition home or self-care (01) ==
LOC: HO.LAB 14:31
PROVIDERS: PCP Internal Medicine; Visit Provider Internal Medicine
DX: E11.22 Type 2 diabetes mellitus with diabetic chronic kidney disease (principal); E78.2 Mixed hyperlipidemia; R80.9 Proteinuria, unspecified; N18.9 Chronic kidney disease, unspecified
CPT/HCPCS: 36415; 80053; 80061; 82043; 82570; 83036; 85025

== ENCOUNTER 2023-09-02 09:29 | Outpatient (REF) | payer MEDICARE, MEDICAID, SELFPAY ==
--- NOTE | ~2023-09-02 | XR_ITS ---
EXAMINATION: XR KNEE, LEFT CLINICAL INFORMATION: Pain. COMPARISON: Radiographs dated 03/26/2010. TECHNIQUE: Frontal, lateral and axial views of the left knee are submitted. FINDINGS: Bony alignment and mineralization are normal. The lateral, medial and patellofemoral joint space compartments are well-maintained. There is slight peripheral osteophyte formation of the patellofemoral compartment superiorly, medially and inferiorly. Enthesophytes arise from the upper and lower pole of the patella at the quadriceps and patellar tendon insertions. No fracture, dislocation or significant joint effusion is seen. There is no foreign body. XR/XR knee LT 3V IMPRESSION: 1. No fracture, dislocation or significant left knee joint effusion is seen. 2. There is minimal osteoarthritic change of the left patellofemoral compartment.
--- NOTE | ~2023-09-02 | XR_ITS ---
EXAMINATION: XR ANKLE, RIGHT CLINICAL INFORMATION: Pain. COMPARISON: None available. TECHNIQUE: AP, lateral, and mortise views of the right ankle. FINDINGS: Bony alignment and mineralization are normal. The ankle mortise is intact. No fracture, dislocation or right ankle joint effusion is seen. There is mild osteoarthritic change of the tibiotalar joint. Boehler's angle is normal. Large posterior and small plantar calcaneal spurs are seen. There is no focal soft tissue swelling, gas or foreign body. XR/XR ankle RT min 3V IMPRESSION: 1. No fracture, dislocation or right ankle joint effusion is seen. 2. There is mild osteoarthritic change of the right tibiotalar joint. 3. There are calcaneal spurs, as detailed.
== END 2023-09-02 09:30 | disposition home or self-care (01) ==
LOC: HO.XRAY 09:29
PROVIDERS: PCP Internal Medicine; Visit Provider Internal Medicine Rheumatology
DX: M25.562 Pain in left knee (principal); M25.572 Pain in left ankle and joints of left foot; M16.0 Bilateral primary osteoarthritis of hip
CPT/HCPCS: 73562; 73610; 99212

== ENCOUNTER 2023-09-02 09:29 | Outpatient (AMB) | payer MEDICARE, SELFPAY ==
--- NOTE | 2023-09-02 09:47 | MHC.OFFVIS ---
Intake Vital Signs 09/02/23 09:48 Height 5 ft 6 in Weight 188 lb 11.451 oz BMI 30.5 BP 126/72 Blood Pressure Location Lt brachial Position Sitting Respiration 17 Pulse 68 Pulse Source Pulse Oximeter Temp 97.8 F Temp Source Skin Pulse Oximetry (%) 98 Oxygen Delivery Method Room Air Intake Visit Reasons: trochant bursitis Training Director Required: Yes Training Director Name: Clifford #[id number] Accompanied by: Self / Same As Patient Allergies lisinopril Allergy (Severe, Verified 09/02/23 09:53) Angioedema atorvastatin Allergy (Intermediate, Verified 09/02/23 09:53) myalgias losartan Allergy (Intermediate, Verified 09/02/23 09:53) cough Medication List - Last Reconciled 09/02/23 by Edu Del Cid MD albuterol sulfate 90 mcg/actuation (Ventolin HFA) 2 puffs inhalation Q4-6H PRN cholecalciferol (vitamin D3) (Vitamin D3) 25 mcg PO DAILY diclofenac sodium 1% 2 grams topical BID PRN duloxetine 30 mg PO DAILY fluticasone propionate 220 mcg/actuation 220 mcg inhalation BID loratadine 10 mg PO DAILY metformin 1,000 mg PO BID naproxen 500 mg PO BID rosuvastatin (Crestor) 40 mg PO DAILY sitagliptin phosphate (Januvia) 100 mg PO DAILY HPI HPI Comments History of Present Illness Details The patient returns for evaluation of her osteoarthritis and fibromyalgia. She was last here in the summer and in April received right subacromial and left trochanteric bursal corticosteroid injections. Those have done reasonably well. She sasys today that she has been having 2 months now pain in the left knee. This is more on the medial aspect. There was no injury that she can recall. She notes it has been painful before and she had an x-ray but does not know where. I do not see any such radiograph reports at [facility] or her chart here. She has also been having intermittent pain for years in the right ankle on the medial aspect and the right heel. No injury in that region was appreciated. She does take naproxen 500 b.i.d., duloxetine 30 mg daily, and topical diclofenac gel. She usually walks with a cane but forgot it today. [facility] Medical History Arthritis Dental crowns present Diabetes Elevated cholesterol GERD (gastroesophageal reflux disease) History of fibromyalgia HTN (hypertension) Tubular adenoma of colon Wears dentures Surgical History H/O colonoscopy History of ankle surgery Hx of section Hx of hand surgery Family History Father No family history of colorectal cancer Social History Patient Tobacco Use Status: Never used Tobacco e-Cigarette/Vaping Use: Never Used Current occupational status: retired Current occupation: [employer] Review of Systems Const Details: Low energy. Negative for appetite change, weight change, fever, chills, malaise Eyes Details: Negative for vision change, dry eyes,headaches and dizziness Card Details: Negative chest pain, edema and syncope Resp Details: Negative for SOB, cough and wheezing GI Details: Negative indigestion/heartburn, nausea, abdominal pain, bowel changes, diarrhea, constipation and bloody stool. Psych Details: Negative for anxiety, depression and stress Endo Details: Negative for polyuria and polydypsia Kenny/Lymph Details: Negative for excessive bruising or bleeding. Physical Exam Vital Signs: Last Vital Signs Temp 97.8 F 09/02/23 09:48 Pulse 68 09/02/23 09:48 Resp 17 09/02/23 09:48 BP 126/72 09/02/23 09:48 Pulse Ox 98 09/02/23 09:48 Oxygen Delivery Method Room Air 09/02/23 09:48 BMI result Body Mass Index 30.5 APPEARANCE: Patient in no acute distress EYES no redness, pupils equal and reactive to light, eyelids normal. No temporal artery tenderness, redness or swelling. EXTREMITIES:? No edema, no calf tenderness, normal peripheral pulses. JOINT EXAM:.?? Cervical Spine:? There is mild pain with lateral rotation at 10 degrees to either side or lateral flexion at 10 degrees to either side.? Most of this is referred to the top of the right trapezius.? There is tenderness along the muscle but not in the posterior cervical spine.? She does not seem to have any weakness or loss of reflexes in the upper extremities. Thoracic Spine:.? No scoliosis.? No tenderness on palpation. Lumbar Spine:.? Alignment normal.? Full range of motion without pain, no tenderness. Chest Wall:.? No tenderness, swelling, increased warmth or erythema. Hands:.? Right: Slight bony enlargement with mild tenderness at the base of the thumb. There is also some tenderness without swelling at the thumb MCP and the thumb IP. There is some minimal nontender bony enlargement at the PIP joints. Left: Mild nontender bony enlargement at the base of the thumb. Normal pain-free range of motion with some slight PIP bony enlargement but without pain.? The other hand joints are without tenderness, swelling, increased warmth or erythema. Wrists:.? Right: Mild pain with flexion extension at 60 degrees with some slight tenderness but no swelling. Left: Slight discomfort with extremes of normal range of motion. No tenderness, swelling, increased warmth or erythema. Elbows:. Normal pain-free range of motion without tenderness, swelling, increased warmth or erythema. Shoulders:.??Right: Mild pain with abduction 150 degrees or with extremes of internal or external rotation.? There is slight anterior and trapezial tenderness.? There may be some abductor weakness but there is no swelling or adenopathy.? Acromioclavicular joint is prominent has mild tenderness.? Left:? Mild discomfort with abduction 150 degrees or with extremes of internal or external rotation.? There is slight anterior tenderness without adenopathy or abductor weakness. Hips: Right: There is lumbar, lateral, and buttock pain with 10 degrees of internal rotation or abduction at 15 degrees. There is no groin pain with motion. Left: Moderate buttock, lateral, and lumbar pain with more than 10 degrees of internal or external rotation. Hip bursa: Mild left and mild right trochanteric tenderness. Knees:.?? Right: Normal pain-free range of motion with mild patellofemoral crepitus. There is no knee pain with motion. There is some slight medial tenderness bilaterally without effusion, soft tissue swelling, increased warmth or erythema.? Left: Mild pain with more than 60 degrees of flexion or extension. Most the pain is in the medial compartment. That area has [id number] tenderness; there is no effusion, redness or warmth. Ankles:.? Right: There is mild medial pain with extremes of flexion or extension more prominent pain with attempts at inversion and eversion. There is medial tenderness. There is no redness or warmth. She does have some prominent superficial varicosities but no edema. Left: Normal pain-free range of motion without tenderness, swelling, increased warmth or erythema. Feet:? Normal pain-free range of motion without tenderness, swelling, increased warmth or erythema. Tender points:.? Mild the tenderness to digital palpation at the occiput, trapezius, second rib, lateral epicondyle, knees, greater trochanter and gluteal area bilaterally. Assessment & Plan Assessment & Plan (1) Pain, joint, knee, left: Code(s): M25.562 - Pain in left knee (2) Left ankle pain: Code(s): M25.572 - Pain in left ankle and joints of left foot (3) Osteoarthritis of hands, bilateral: Code(s): M19.041 - Primary osteoarthritis, right hand; M19.042 - Primary osteoarthritis, left hand (4) Osteoarthritis of hips, bilateral: Comment: Mild on x-ray 2021 Code(s): M16.0 - Bilateral primary osteoarthritis of hip (5) History of fibromyalgia: Code(s): Z87.39 - Personal history of other diseases of the musculoskeletal system and connective tissue Plan She still does have widespread pain and tender areas. Again I do not see active inflammatory arthritis. Findings in the knee seem consistent with some osteoarthritis. We will get an x-ray of that area and maybe offer her an injection next week. The right ankle has some medial tenderness without significant swelling. This could be some tendon dysfunction. An x-ray of that region is ordered as well. I will switch her from naproxen to sulindac as an anti-inflammatory. Her duloxetine and topical diclofenac are renewed as well. Will see her back next week to review her x-rays and possibly give her an injection. Orders: Orders XR knee LT 3V Today M25.562 - Pain in left knee XR ankle RT min 3V Today M25.572 - Pain in left ankle and joints of left foot Medications: New sulindac 200 mg PO BID 60 tabs 3RF duloxetine 30 mg PO DAILY 30 caps 4RF Z87.39 - Personal history of other diseases of the musculoskeletal system and connective tissue Refilled diclofenac sodium 1% 2 grams topical BID PRN 100 grams 1RF for pain M75.81 - Other shoulder lesions, right shoulder, M75.82 - Other shoulder lesions, left shoulder Coding Level of Care Code Est Pt Level 3 (05000) Diagnoses Pain, joint, knee, left M25.562 Left ankle pain M25.572 Osteoarthritis of hands, bilateral M19.041; M19.042 Osteoarthritis of hips, bilateral M16.0 History of fibromyalgia Z87.39
[2023-09-02 09:48] VITALS: BP 126/72; PULSE 68; RESP 17; TEMP 36.6; O2SAT 98; BMI 30.5
== END 2023-09-02 10:34 | disposition home or self-care (01) ==
PROVIDERS: PCP Internal Medicine; Visit Provider Internal Medicine Rheumatology
DX: M25.562 Pain in left knee (principal); M25.572 Pain in left ankle and joints of left foot; M19.041 Primary osteoarthritis, right hand; M19.042 Primary osteoarthritis, left hand; M16.0 Bilateral primary osteoarthritis of hip; Z87.39 Personal history of other diseases of the musculoskeletal system and connective tissue
CPT/HCPCS: 99213

== ENCOUNTER 2023-09-08 09:37 | Outpatient (AMB) | payer MEDICARE, MEDICAID, SELFPAY ==
[2023-09-08 09:49] VITALS: BP 110/72; PULSE 93; TEMP 36; O2SAT 98; BMI 28.5
--- NOTE | 2023-09-08 09:49 | A.OFFVIS_ITS ---
Intake Vital Signs 09/08/23 09:49 Height 5 ft 6 in Weight 176 lb 12.972 oz BMI 28.5 BP 110/72 Blood Pressure Location Rt brachial Position Sitting Pulse 93 Pulse Source Pulse Oximeter Temp 96.8 F Temp Source Skin Pulse Oximetry (%) 98 Oxygen Delivery Method Room Air Intake Visit Reasons: some time next week for ? injection Intake Note: Patient presents today for xray review and right heel and left knee injection. Wood Products Manufacturer Required: Yes Wood Products Manufacturer Language: Civil Engineer In Training Name: Matilda [id number] Information Interpreted: clinical only Accompanied by: Self / Same As Patient Allergies lisinopril Allergy (Severe, Verified 09/08/23 09:58) Angioedema atorvastatin Allergy (Intermediate, Verified 09/08/23 09:58) myalgias losartan Allergy (Intermediate, Verified 09/08/23 09:58) cough HPI HPI Comments History of Present Illness Details The patient returns today for evaluation for possible knee injection. She had an x-ray that showed some mild osteoarthritis in the left knee. The right ankle also showed some mild osteoarthritis. She continues to have pain in the medial aspect of the right heel and the medial ankle on the right. The knee is occasionally swollen. She wants an injection there. She has had previous corticosteroid injections that worked well for her. She remains on duloxetine, topical diclofenac and sulindac for her osteoarthritis and fibromyalgia. [facility] Medical History Arthritis Dental crowns present Diabetes Elevated cholesterol GERD (gastroesophageal reflux disease) History of fibromyalgia HTN (hypertension) Tubular adenoma of colon Wears dentures Surgical History H/O colonoscopy History of ankle surgery Hx of hand surgery Hx of section Family History Father No family history of colorectal cancer Patient Tobacco Use Status: Never used Tobacco e-Cigarette/Vaping Use: Never Used Current occupational status: retired Current occupation: Rt handed Review of Systems Const Details: Negative for appetite change, weight change, fever, chills, malaise and fatigue Resp Details: Negative for SOB, cough and wheezing GI Details: Negative indigestion/heartburn, nausea, abdominal pain, bowel changes, diarrhea, constipation and bloody stool. Endo Details: Negative for polyuria and polydypsia Physical Exam Vital Signs: Last Vital Signs Temp 96.8 F 09/08/23 09:49 Pulse 93 09/08/23 09:49 BP 110/72 09/08/23 09:49 Pulse Ox 98 09/08/23 09:49 Oxygen Delivery Method Room Air 09/08/23 09:49 BMI result Body Mass Index 28.5 APPEARANCE: Patient in no acute distress Knees:.?? Right: Normal pain-free range of motion with mild patellofemoral crepitus. There is no knee pain with motion. There is some slight medial tenderness without effusion, soft tissue swelling, increased warmth or erythema.? Left: Mild pain with more than 60 degrees of flexion or extension. Most the pain is in the medial compartment. That area has kiai-pm-orvkhhes tenderness; there is no effusion, redness or warmth. Ankles:.? Right: There is mild medial pain with extremes of flexion or extension more prominent pain with attempts at inversion and eversion. There is medial tenderness. There is no redness or warmth. She does have some prominent superficial varicosities but no edema. Left: Some decrease in range of motion where she has had previous surgery for fracture no tenderness, swelling, increased warmth or erythema. Feet:? Right: There is a mhrk-pg-hrapxtgm tenderness of the medial aspect of the heel without redness or swelling. Left: Normal pain-free range of motion without tenderness, swelling, increased warmth or erythema. Office Procedures Joint Injection/Drain Joint Injection/Drain Primary Site: left knee Injected: 40 mg of, Kenalog, with 1 mL of and 1% plain lidocaine Coding Details: With the patient's consent the left knee was prepped with ChloraPrep and alcohol. The skin was anesthetized with 2 cc of 1% lidocaine. The knee was then injected with 40 mg of triamcinolone and 1 cc of I % lidocaine. The patient tolerated the procedure with no immediate adverse effects. 17763 - Large joint Procedure code (CPT) selection complete Results Reviewed Results Reviewed: [address] [address] XRay Report Signed Patient: Maria Elena Prieto MR#: [id number] : 1950 Acct:[id number] Age/Sex: 73 / F ADM Date: 09/02/23 Ordering Physician: Edu Del Cid MD Date of Service: 09/02/23 Procedure(s): XR knee LT 3V Accession Number(s): [id number] cc: Bhumika Correa MD; Edu Del Cid MD~ EXAMINATION: XR KNEE, LEFT CLINICAL INFORMATION: Pain. COMPARISON: Radiographs dated 03/26/2010. TECHNIQUE: Frontal, lateral and axial views of the left knee are submitted. FINDINGS: Bony alignment and mineralization are normal. The lateral, medial and patellofemoral joint space compartments are well-maintained. There is slight peripheral osteophyte formation of the patellofemoral compartment superiorly, medially and inferiorly. Enthesophytes arise from the upper and lower pole of the patella at the quadriceps and patellar tendon insertions. No fracture, dislocation or significant joint effusion is seen. There is no foreign body. XR/XR knee LT 3V IMPRESSION: 1. No fracture, dislocation or significant left knee joint effusion is seen. 2. There is minimal osteoarthritic change of the left patellofemoral compartment. Dictated By: Ras Garcia MD [place] [id number] XRay Report Signed Patient: Maria Elena Prieto MR#: [id number] : 1950 Acct:[id number] Age/Sex: 73 / F ADM Date: 09/02/23 Ordering Physician: Edu Del Cid MD Date of Service: 09/02/23 Procedure(s): XR ankle RT min 3V Accession Number(s): [id number] cc: Bhumika Correa MD; Edu Del Cid MD~ EXAMINATION: XR ANKLE, RIGHT CLINICAL INFORMATION: Pain. COMPARISON: None available. TECHNIQUE: AP, lateral, and mortise views of the right ankle. FINDINGS: Bony alignment and mineralization are normal. The ankle mortise is intact. No fracture, dislocation or right ankle joint effusion is seen. There is mild osteoarthritic change of the tibiotalar joint. Boehler's angle is normal. Large posterior and small plantar calcaneal spurs are seen. There is no focal soft tissue swelling, gas or foreign body. XR/XR ankle RT min 3V IMPRESSION: 1. No fracture, dislocation or right ankle joint effusion is seen. 2. There is mild osteoarthritic change of the right tibiotalar joint. 3. There are calcaneal spurs, as detailed. Dictated By: Ras Garcia MD Signed By: <Electronically signed by Ras Garcia MD in OV> Assessment & Plan Assessment & Plan (1) Osteoarthritis of ankle, right: Code(s): M19.071 - Primary osteoarthritis, right ankle and foot (2) History of fibromyalgia: Code(s): Z87.39 - Personal history of other diseases of the musculoskeletal system and connective tissue (3) Osteoarthritis of left knee: Code(s): M17.12 - Unilateral primary osteoarthritis, left knee Plan She has underlying fibromyalgia but also has a few areas of osteoarthritis including the ankles and the left knee. She wants to try a corticosteroid injection in the left knee and that seems to be reasonable option currently. She had no side effects with previous injections. With the patient's consent the left knee was prepped with ChloraPrep and alcohol. The skin was anesthetized with 2 cc of 1% lidocaine. The knee was then injected with 40 mg of triamcinolone and 1 cc of I % lidocaine. The patient tolerated the procedure with no immediate adverse effects. The right ankle pain is also accompanied by some x-ray changes of osteoarthritis and she has quite a bit of heel pain suggesting some plantar fasciitis as well. We will ask for an orthopedic evaluation for that. If the knee continues to bother her further ortho evaluation to consider meniscal tear with MRI scanning might be reasonable. Orders: Orders AMB Joint Injection/Aspiration Today M17.12 - Unilateral primary osteoarthritis, left knee Referrals Orthopedics Referral M19.072 - Primary osteoarthritis, left ankle and foot Coding Level of Care Code Est Pt Level 3 (90616) Diagnoses Osteoarthritis of ankle, right M19.071 History of fibromyalgia Z87.39 Osteoarthritis of left knee M17.12 CPT Codes Coding - 12076 Large joint: 99108 - Large joint ([id number])
== END 2023-09-08 10:21 | disposition home or self-care (01) ==
PROVIDERS: PCP Internal Medicine; Visit Provider Internal Medicine Rheumatology
DX: M19.071 Primary osteoarthritis, right ankle and foot (principal); Z87.39 Personal history of other diseases of the musculoskeletal system and connective tissue; M17.12 Unilateral primary osteoarthritis, left knee
CPT/HCPCS: 20610; 99213

== ENCOUNTER → 2023-09-08 09:37 | Outpatient (BNVA) | payer MEDICARE, MEDICAID, SELFPAY | PROVIDERS: PCP Internal Medicine; Visit Provider Internal Medicine Rheumatology | DX: M17.12 Unilateral primary osteoarthritis, left knee (principal); M19.072 Primary osteoarthritis, left ankle and foot; M76.61 Achilles tendinitis, right leg; M77.30 Calcaneal spur, unspecified foot; Z87.39 Personal history of other diseases of the musculoskeletal system and connective tissue | CPT/HCPCS: 20610; 99212 ==

== ENCOUNTER 2023-09-30 08:52 | Outpatient (AMB) | payer MEDICARE, MEDICAID, SELFPAY ==
--- NOTE | 2023-09-30 09:04 | MHC.OFFVIS ---
Intake Vital Signs 09/30/23 09:10 Height 5 ft 6 in Weight 176 lb BMI 28.4 Intake Visit Reasons: Newprob-Primary osteoarthritis, LT foot/ankle pain Intake Note: Maria Elena 73 yr old female presents today for a new problem visit for left foot/ankle O.A pain. Patient reports she is having pain in her heel and her achilles. States pain increases with prolong walking. No injury she can recall or numbness, tingling in toes. She does get spasms in her toes and foot mainly at night time. Automation And Controls Supervisor Required: Yes Allergies lisinopril Allergy (Severe, Verified 09/30/23 09:08) Angioedema atorvastatin Allergy (Intermediate, Verified 09/30/23 09:08) myalgias losartan Allergy (Intermediate, Verified 09/30/23 09:08) cough Medication List - Last Reconciled 09/30/23 by Isabel Gomez MD albuterol sulfate 90 mcg/actuation (Ventolin HFA) 2 puffs inhalation Q4-6H PRN cholecalciferol (vitamin D3) (Vitamin D3) 25 mcg PO DAILY diclofenac sodium 1% 2 grams topical BID PRN duloxetine 30 mg PO DAILY fluticasone propionate 220 mcg/actuation 220 mcg inhalation BID loratadine 10 mg PO DAILY metformin 1,000 mg PO BID rosuvastatin (Crestor) 40 mg PO DAILY sitagliptin phosphate (Januvia) 100 mg PO DAILY sulindac 200 mg PO BID HPI HPI Comments History of Present Illness Details She says pain is on right ankle, pointing to achilles tendon. Right hurts more now. History of left ankle surgery with gabby, 2014, Dr. Florence. Denies numbness but has history of DM. Denies weakness; no foot drop. Treatment done so far: ankle brace, compression stockings therapy - 2015, none since for feet; recent for shoulders Follows with rheumatology -history of fibromyalgia. Recent left knee injection. [facility] Medical History Arthritis Dental crowns present Diabetes Elevated cholesterol GERD (gastroesophageal reflux disease) History of fibromyalgia HTN (hypertension) Tubular adenoma of colon Wears dentures Surgical History H/O colonoscopy History of ankle surgery Hx of hand surgery Hx of section Family History Father No family history of colorectal cancer Social History Patient Tobacco Use Status: Never used Tobacco e-Cigarette/Vaping Use: Never Used Current occupational status: retired Current occupation: Rt handed Review of Systems Const All systems reviewed & are unremarkable except as noted in HPI and below Physical Exam Constitutional: Patient appears to be in no acute distress, well nourished and well developed. MSK: Right foot/ankle-no redness, swelling, skin changes. Tender on Achillis tendon as it inserts to heal. Mildly tender on malleoli but not swelling in those areas. Plantar fascia nontender. Left foot/ankle-no redness, swelling, skin changes. Diffusely tender though except for plantar fascia. Neurological: Neurologic examination of the upper and lower extremities was nonfocal with intact sensation, muscle stretch reflexes and without focal motor deficits . Babinski was down going bilaterally. Clonus was negative. Gait is non-antalgic without loss of balance. Results Reviewed Results Reviewed: I independently reviewed the results of the following: Prominent heel spur right ankle XR ANKLE, RIGHT CLINICAL INFORMATION: Pain. COMPARISON: None available. TECHNIQUE: AP, lateral, and mortise views of the right ankle. FINDINGS: Bony alignment and mineralization are normal. The ankle mortise is intact. No fracture, dislocation or right ankle joint effusion is seen. There is mild osteoarthritic change of the tibiotalar joint. Boehler's angle is normal. Large posterior and small plantar calcaneal spurs are seen. There is no focal soft tissue swelling, gas or foreign body. XR/XR ankle RT min 3V IMPRESSION: 1. No fracture, dislocation or right ankle joint effusion is seen. 2. There is mild osteoarthritic change of the right tibiotalar joint. 3. There are calcaneal spurs, as detailed. I reviewed records from the following: Rheumatology Assessment & Plan Assessment & Plan (1) Achilles tendinitis, right leg: Code(s): M76.61 - Achilles tendinitis, right leg (2) Heel spur: Code(s): M77.30 - Calcaneal spur, unspecified foot Qualifiers: Laterality: right Qualified Code(s): M77.31 - Calcaneal spur, right foot (3) Left ankle pain: Code(s): M25.572 - Pain in left ankle and joints of left foot Qualifiers: Chronicity: chronic Qualified Code(s): M25.572 - Pain in left ankle and joints of left foot; G89.29 - Other chronic pain Plan Suspect right Achilles tendinitis, in the setting of a heel spur as seen on x-ray. We talked about home exercises versus PT. Taught her how to do an ice bucket at home. Was trying to teach her how to do stretches but it seems to be unsafe, might pose a risk for falling at home. So we instead agreed on sending her to physical therapy. Order placed. She is also considering injection. Will refer to pain management for injection under ultrasound. Ice for chronic left ankle pain, was sent for x-rays today, make sure hardware is in place. Assessment and plan discussed with patient, and patient was agreeable. All questions were answered thoroughly. Follow-up after injection with pain management Isabel Gomez MD, JEISON Board Certified, [place] [employer] and Rehabilitation (ABPMR) Board Certified, [place] [employer] Electro[employer] (ABEM) Orders: Orders XR ankle LT 2V Today M25.572 - Pain in left ankle and joints of left foot PT Evaluation and Treatment Today M76.61 - Achilles tendinitis, right leg, M77.30 - Calcaneal spur, unspecified foot Referrals Pain Management Referral M76.61 - Achilles tendinitis, right leg, M77.30 - Calcaneal spur, unspecified foot Coding Level of Care Code New Pt Level 4 (21325) Diagnoses Achilles tendinitis, right leg M76.61 Calcaneal spur of right foot M77.31 Laterality: right Chronic pain of left ankle M25.572; G89.29 Chronicity: chronic
[2023-09-30 09:10] VITALS: BMI 28.4
== END 2023-09-30 09:44 | disposition home or self-care (01) ==
PROVIDERS: PCP Internal Medicine; Visit Provider Physical Medicine & Rehabilitation
DX: M76.61 Achilles tendinitis, right leg (principal); M77.31 Calcaneal spur, right foot; M25.572 Pain in left ankle and joints of left foot; G89.29 Other chronic pain
CPT/HCPCS: 99204

== ENCOUNTER 2023-09-30 08:52 | Outpatient (REF) | payer MEDICARE, MEDICAID, SELFPAY ==
--- NOTE | ~2023-09-30 | XR_ITS ---
EXAMINATION: XR ANKLE, LEFT CLINICAL INFORMATION: Left ankle and foot pain. COMPARISON: Left ankle radiographs dated 08/06/2015. TECHNIQUE: AP, lateral, and mortise views of the left ankle. FINDINGS: Distal lateral fibular stabilization plate with fixation screws. Medial malleoli orthopedic screw. No hardware fracture. No perihardware lucency to suggest loosening or infection. No acute fracture or dislocation. The ankle mortise is maintained. No talar osteochondral lesion. Plantar and dorsal calcaneal enthesophytes. XR/XR ankle LT 2V IMPRESSION: 1. Distal fibular and medial malleoli orthopedic hardware without evidence of complication. 2. No acute osseous abnormality. 3. Plantar and dorsal calcaneal spurs.
== END 2023-09-30 08:53 | disposition home or self-care (01) ==
LOC: HO.HOSX 08:52
PROVIDERS: PCP Internal Medicine; Visit Provider Physical Medicine & Rehabilitation
DX: M25.572 Pain in left ankle and joints of left foot (principal); M76.61 Achilles tendinitis, right leg; M77.31 Calcaneal spur, right foot
CPT/HCPCS: 73600; 99202

== ENCOUNTER 2023-12-02 15:59 | Outpatient (REF) | payer MEDICARE, OTHER, SELFPAY ==
[2023-12-02 18:00] LABS: Alanine Aminotransferase 21 U/L (0-31); Albumin Level 4.6 g/dL (3.5-5.0); Alkaline Phosphatase 123 U/L (39-117); Anion Gap 14 (12-20); Aspartate Amino Transferase 23 U/L (5-31); Bilirubin Total 0.7 mg/dL (0.0-1.0); Blood Urea Nitrogen 13 mg/dL (9-16); Calcium 9.9 mg/dL (8.4-10.2); Carbon Dioxide 28 mmol/L (22-29); Chloride 104 mmol/L (96-108); Cholesterol 179 mg/dL (<200); Estimated Glomerular Filt Rate 47; Glucose Random 170 mg/dL (60-115); HDL Cholesterol 55 mg/dL (>40); LDL Cholesterol Calculated 75 mg/dL (<100); Potassium 4.8 mmol/L (3.3-5.1); Sodium 141 mmol/L (135-145); Total Protein 8.2 g/dL (6.5-8.0); Triglycerides 245 mg/dL (<150)
[2023-12-03 05:19] LABS: Estimated Average Glucose 177 mg/dL; Hemoglobin A1c % 7.8 % (<6.0)
== END 2023-12-02 16:00 | disposition home or self-care (01) ==
LOC: HO.LAB 15:59
PROVIDERS: PCP Internal Medicine; Visit Provider Internal Medicine
DX: E11.9 Type 2 diabetes mellitus without complications (principal); E78.2 Mixed hyperlipidemia; N18.9 Chronic kidney disease, unspecified; R80.9 Proteinuria, unspecified
CPT/HCPCS: 36415; 80053; 80061; 83036

== ENCOUNTER 2024-01-07 10:29 | Outpatient (AMB) | payer MEDICARE, SELFPAY ==
--- NOTE | 2024-01-07 10:33 | MHC.OFFVIS ---
Intake Vital Signs 01/07/24 10:42 Height 5 ft 6 in Weight 179 lb 14.355 oz BMI 29.0 BP 110/70 Blood Pressure Location Rt brachial Position Sitting Pulse 74 Pulse Source Pulse Oximeter Temp 97 F Temp Source Skin Pulse Oximetry (%) 99 Oxygen Delivery Method Room Air Intake Visit Reasons: oa/fm with healthcare insurance sales agent /LVM Intake Note: Patient last seen 09/08/[address] Del Cid, presents today for follow up. Patient c/o deejay shoulder pain, would like cortisone injection today. Electronic Repair Troubleshooter Required: Yes Electronic Repair Troubleshooter Language: Retail Operations Specialist Name: Rochelle [id number] Information Interpreted: clinical only Accompanied by: Self / Same As Patient Allergies lisinopril Allergy (Severe, Verified 01/07/24 10:35) Angioedema atorvastatin Allergy (Intermediate, Verified 01/07/24 10:35) myalgias losartan Allergy (Intermediate, Verified 01/07/24 10:35) cough HPI HPI Comments History of Present Illness Details Mr. Bro 73-year-old female returns today for follow-up for fibromyalgia and post knee injection at last visit. The patient says that her knees are feeling better and the injection did help. She is doing well overall except for her bilateral hips that are tender right greater than left sometimes makes it difficult to walk. She remains on duloxetine, topical diclofenac and sulindac for her osteoarthritis and fibromyalgia. [facility] Medical History Arthritis Dental crowns present Diabetes Elevated cholesterol GERD (gastroesophageal reflux disease) History of fibromyalgia HTN (hypertension) Tubular adenoma of colon Wears dentures Surgical History H/O colonoscopy History of ankle surgery Hx of hand surgery Hx of section Family History Father No family history of colorectal cancer Social History Patient Tobacco Use Status: Never used Tobacco e-Cigarette/Vaping Use: Never Used Current occupational status: retired Current occupation: Rt handed Review of Systems Const All systems reviewed & are unremarkable except as noted in HPI and below Physical Exam Vital Signs: Last Vital Signs Temp 97 F 01/07/24 10:42 Pulse 74 01/07/24 10:42 BP 110/70 01/07/24 10:42 Pulse Ox 99 01/07/24 10:42 Oxygen Delivery Method Room Air 01/07/24 10:42 BMI result Body Mass Index 29.0 APPEARANCE: Patient in no acute distress EARS:? External ear normal. HEART:? Regular rhythm, S1-S2 heard, no murmurs, rubs or gallops. LUNG:? Clear to percussion and auscultation EXTREMITIES:? No edema, no calf tenderness, normal peripheral pulses. NEURO:? Oriented and alert x3.? No focal weakness.? Reflexes symmetric.? Gait normal. SKIN:? There are no skin lesions evident. No objective signs of Raynaud's phenomenon. Hips: Right: There is lumbar, lateral, and buttock pain with 10 degrees of internal rotation or abduction at 15 degrees. There is no groin pain with motion. Left: Moderate buttock, lateral, and lumbar pain with more than 10 degrees of internal or external rotation. Hip bursa: Mild to moderate left and moderate right trochanteric tenderness. Knees:.?? Right: Normal pain-free range of motion with mild patellofemoral crepitus. There is no knee pain with motion. There is some slight medial tenderness without effusion, soft tissue swelling, increased warmth or erythema.? Left: Mild pain with more than 60 degrees of flexion or extension. Most the pain is in the medial compartment. That area has tjop-sx-jvilqcro tenderness; there is no effusion, redness or warmth. Ankles:.? Right: There is mild medial pain with extremes of flexion or extension more prominent pain with attempts at inversion and eversion. There is medial tenderness. There is no redness or warmth. She does have some prominent superficial varicosities but no edema. Left: Some decrease in range of motion where she has had previous surgery for fracture no tenderness, swelling, increased warmth or erythema. Feet:? Right: There is a rzgf-vk-qxtyhiac tenderness of the medial aspect of the heel without redness or swelling. Left: Normal pain-free range of motion without tenderness, swelling, increased warmth or erythema. Office Procedures Joint Injection/Drain Joint Injection/Drain Details: Right Trochanteric Bursa injected with 40mg Kenalog 1ml 1% Lidocaine Left Trochanteric Bursa injected with 40mg Kenalog 1ml 1% Lidocaine Primary Site: other (Right Trochanteric Bursa) Secondary Site: other (Left Trochanteric Bursa) Prep: site was prepped using aseptic technique Approach Used: posterolateral Procedure: The patient tolerated the procedure well Coding 32467 - Glenohumeral/Tronchanteric Bursa/Intraarticular Procedure code (CPT) selection complete Results Reviewed Results Reviewed: Prominent heel spur right ankle XR ANKLE, RIGHT CLINICAL INFORMATION: Pain. COMPARISON: None available. TECHNIQUE: AP, lateral, and mortise views of the right ankle. FINDINGS: Bony alignment and mineralization are normal. The ankle mortise is intact. No fracture, dislocation or right ankle joint effusion is seen. There is mild osteoarthritic change of the tibiotalar joint. Boehler's angle is normal. Large posterior and small plantar calcaneal spurs are seen. There is no focal soft tissue swelling, gas or foreign body. XR/XR ankle RT min 3V IMPRESSION: 1. No fracture, dislocation or right ankle joint effusion is seen. 2. There is mild osteoarthritic change of the right tibiotalar joint. 3. There are calcaneal spurs, as detailed. I reviewed records from the following: Rheumatology Assessment & Plan Assessment & Plan (1) Osteoarthritis of ankle, right: Code(s): M19.071 - Primary osteoarthritis, right ankle and foot Qualifiers: Osteoarthritis type: primary Qualified Code(s): M19.071 - Primary osteoarthritis, right ankle and foot (2) History of fibromyalgia: Code(s): Z87.39 - Personal history of other diseases of the musculoskeletal system and connective tissue (3) Osteoarthritis of left knee: Code(s): M17.12 - Unilateral primary osteoarthritis, left knee Qualifiers: Osteoarthritis type: primary Qualified Code(s): M17.12 - Unilateral primary osteoarthritis, left knee Plan #Fibromyalgia: She has underlying fibromyalgia. but also has a few areas of osteoarthritis including the ankles and the left knee. #Bilatera Hip Bursitis - corticosteroid injections given - patient tolerated procedure weel. Given after care instructions. #Mulitple OA/OA Left Knee: The knee continues to do well after the injection in Aug 2023. The right ankle pain is also accompanied by some x-ray changes of osteoarthritis and she has quite a bit of heel pain suggesting some plantar fasciitis as well. She has not yet seen orthopedic for her heel pain. If the knee continues to bother her further ortho evaluation to consider meniscal tear with MRI scanning might be reasonable. Coding Level of Care Code Est Pt Level 3 (25815) Diagnoses Primary osteoarthritis of right ankle M19.071 Osteoarthritis type: primary History of fibromyalgia Z87.39 Primary osteoarthritis of left knee M17.12 Osteoarthritis type: primary CPT Codes Coding - Joint 7: 11536 - Glenohumeral/Tronchanteric Bursa/Intraarticular ([id number])
[2024-01-07 10:42] VITALS: BP 110/70; PULSE 74; TEMP 36.1; O2SAT 99; BMI 29.0
== END 2024-01-07 11:22 | disposition home or self-care (01) ==
LOC: HO.RHE 10:29
PROVIDERS: PCP Internal Medicine; Visit Provider Nurse Practitioner Family
DX: M19.071 Primary osteoarthritis, right ankle and foot (principal); Z87.39 Personal history of other diseases of the musculoskeletal system and connective tissue; M17.12 Unilateral primary osteoarthritis, left knee; M70.61 Trochanteric bursitis, right hip; M70.62 Trochanteric bursitis, left hip
CPT/HCPCS: 20610; 99213

== ENCOUNTER → 2024-01-07 10:29 | Outpatient (BNVA) | payer MEDICARE, SELFPAY | PROVIDERS: PCP Internal Medicine; Visit Provider Nurse Practitioner Family | DX: M70.71 Other bursitis of hip, right hip (principal); M70.72 Other bursitis of hip, left hip; M17.12 Unilateral primary osteoarthritis, left knee; M19.071 Primary osteoarthritis, right ankle and foot; Z87.39 Personal history of other diseases of the musculoskeletal system and connective tissue | CPT/HCPCS: 20610; 99212 ==

== ENCOUNTER 2024-01-26 10:02 | Outpatient (REF) | payer MEDICARE, SELFPAY | END 2024-01-26 10:03 | disposition home or self-care (01) | LOC: HO.MAMMO 10:02 | PROVIDERS: PCP Internal Medicine; Visit Provider Internal Medicine | DX: Z12.31 Encounter for screening mammogram for malignant neoplasm of breast (principal) | CPT/HCPCS: 77063; 77067 ==

== ENCOUNTER → 2024-01-26 10:30 | Outpatient (BNV) | payer MEDICARE, SELFPAY | PROVIDERS: PCP Internal Medicine; Visit Provider Radiology Diagnostic Radiology | DX: Z12.31 Encounter for screening mammogram for malignant neoplasm of breast (principal) | CPT/HCPCS: 77063; 77067 ==

== ENCOUNTER → 2024-02-07 10:03 | Outpatient (BNVA) | payer MEDICARE, SELFPAY | PROVIDERS: PCP Internal Medicine; Referring Provider Physical Medicine & Rehabilitation; Visit Provider Internal Medicine | DX: M76.61 Achilles tendinitis, right leg (principal) | CPT/HCPCS: 99202 ==

== ENCOUNTER 2024-02-07 10:04 | Outpatient (AMB) | payer MEDICARE, SELFPAY ==
--- NOTE | 2024-02-07 10:35 | A.OFFVIS_ITS ---
Vital Signs 02/07/24 10:37 Height 5 ft 6 in Weight 179 lb BMI 28.9 BP 153/72 H Blood Pressure Location Lt brachial Position Sitting Respiration 14 Pulse 85 Pulse Source Pulse Oximeter Pulse Oximetry (%) 96 Oxygen Delivery Method Room Air Intake Visit Reasons: ACHILLES INJECTION UNDER ULTRASOUND Assembler 1St Shift Required: Yes Assembler 1St Shift Name: Babs Hancock [id number] Allergies lisinopril Allergy (Severe, Verified 02/07/24 10:39) Angioedema atorvastatin Allergy (Intermediate, Verified 02/07/24 10:39) myalgias losartan Allergy (Intermediate, Verified 02/07/24 10:39) cough Medication List - Last Reconciled 02/07/24 by Tamiko Montano LPN albuterol sulfate 90 mcg/actuation (Ventolin HFA) 2 puffs inhalation Q4-6H PRN cholecalciferol (vitamin D3) (Vitamin D3) 25 mcg PO DAILY diclofenac sodium 1% 2 grams topical BID PRN duloxetine 30 mg PO DAILY fluticasone propionate 220 mcg/actuation 220 mcg inhalation BID loratadine 10 mg PO DAILY metformin 1,000 mg PO BID rosuvastatin (Crestor) 40 mg PO DAILY sitagliptin phosphate (Januvia) 100 mg PO DAILY sulindac 200 mg PO BID HPI HPI ACHILLES INJECTION UNDER ULTRASOUND: Details: 73-year-old female who presents today to the office for an Achilles tendon injection. A certified nickel plater was present during the visit. The patient reports ankle pain. She had an x-ray of her bilateral ankles. She had physical therapy in the past for her hips and shoulders. She has been doing home exercises (T.I.D.) for ankle pain with good but slow benefit. Her pain has improved since she started home exercises. She uses a walker or cane for ambulation. She has a history of osteoarthritis of the joints. COUNTS INCLUDE 234 BEDS AT THE [facility] Medical History Arthritis Dental crowns present Diabetes Elevated cholesterol GERD (gastroesophageal reflux disease) History of fibromyalgia HTN (hypertension) Tubular adenoma of colon Wears dentures Surgical History H/O colonoscopy History of ankle surgery Hx of hand surgery Hx of section Family History Father No family history of colorectal cancer Social History Patient Tobacco Use Status: Never used Tobacco e-Cigarette/Vaping Use: Never Used Current occupational status: retired Current occupation: [employer] Review of Systems Const All systems reviewed & are unremarkable except as noted in HPI and below Physical Exam Vital Signs: Last Vital Signs Pulse 85 02/07/24 10:37 Resp 14 02/07/24 10:37 BP 153/72 H 02/07/24 10:37 Pulse Ox 96 02/07/24 10:37 Oxygen Delivery Method Room Air 02/07/24 10:37 BMI result Body Mass Index 28.9 General: Appears afebrile. Alert and oriented. Mood and affect appropriate. Follows and participates in conversation appropriately. Respiratory effort is unlabored. Able to transition from sit to stand unassisted. Ambulates with bilaterally normal heel strike and toe off. There is an exquisite tenderness to palpation of the Achilles to deep palpation of the right Achilles tendon. Results Reviewed Results Reviewed: 09/02/23: XR ANKLE, RIGHT FINDINGS: Bony alignment and mineralization are normal. The ankle mortise is intact. No fracture, dislocation or right ankle joint effusion is seen. There is mild osteoarthritic change of the tibiotalar joint. Boehler's angle is normal. Large posterior and small plantar calcaneal spurs are seen. There is no focal soft tissue swelling, gas or foreign body. IMPRESSION: 1. No fracture, dislocation or right ankle joint effusion is seen. 2. There is mild osteoarthritic change of the right tibiotalar joint. 3. There are calcaneal spurs, as detailed. 09/30/23: XR ANKLE, LEFT FINDINGS: Distal lateral fibular stabilization plate with fixation screws. Medial malleoli orthopedic screw. No hardware fracture. No perihardware lucency to suggest loosening or infection. No acute fracture or dislocation. The ankle mortise is maintained. No talar osteochondral lesion. Plantar and dorsal calcaneal enthesophytes. IMPRESSION: 1. Distal fibular and medial malleoli orthopedic hardware without evidence of complication. 2. No acute osseous abnormality. 3. Plantar and dorsal calcaneal spurs. Assessment & Plan Assessment & Plan (1) Achilles tendinitis, right leg: Code(s): M76.61 - Achilles tendinitis, right leg Category: Medical Plan 73-year-old female referred to us for consideration of an ultrasound-guided Achilles tendon injection. I went over the risks and benefits of the injection, including injury to the tendon and possible rupture. Given these risks, I recommended that she continue to trial home exercise program at this time since she has found it to be beneficial. She only recently started formal home exercises for the Achilles tendon problem. She will continue this for 3 months. We will follow up in three months to assess the response from the home exercises. If her pain continues to worsen, we can consider an Achilles tendon US guided injection on the right side at that time. Patient is in agreement. Scribed for Dr. Howell by Pako Merrill, medical care manager, on 02/07/2024. I, Dr. Howell, have personally reviewed and agree with the information entered by the scribe. Coding Level of Care Code New Pt Level 3 (07525) Diagnoses Achilles tendinitis, right leg M76.61
[2024-02-07 10:37] VITALS: BP 153/72; PULSE 85; RESP 14; O2SAT 96; BMI 28.9
== END 2024-02-07 11:18 | disposition home or self-care (01) ==
PROVIDERS: PCP Internal Medicine; Referring Provider Physical Medicine & Rehabilitation; Visit Provider Internal Medicine
DX: M76.61 Achilles tendinitis, right leg (principal)
CPT/HCPCS: 99203

== ENCOUNTER 2024-06-07 13:08 | Outpatient (REF) | payer MEDICARE, SELFPAY ==
--- NOTE | ~2024-06-07 | MR_ITS ---
EXAMINATION: MR BRAIN WITHOUT CONTRAST CLINICAL INFORMATION: 73-year-old female with hemiparesis. Self-reported dragging of left leg and headaches, buzzing in ears. COMPARISON: None available. TECHNIQUE: MRI of the brain was obtained using routine sequences without contrast. FINDINGS: Brain Volume: [id number] generalized diffuse, primarily supratentorial parenchymal volume loss within the limitations of qualitative assessment. Structural: No malformations. Brain and Meninges: DWI sequence demonstrates no restricted diffusion to suggest acute or subacute cerebral ischemia. A few punctate FLAIR/T2 intensities are noted in the left frontal subcortical white matter near the convexity. Otherwise the brain parenchyma is normal in morphology and signal intensity. Gradient refocused imaging demonstrates no abnormal susceptibility-weighted signal loss to suggest hemorrhage, hemosiderin staining or abnormal mineralization. No extra-axial fluid collections, space occupying process, mass effect or acute intracranial process is identified. Ventricles and Subarachnoid Spaces: The ventricular system and subarachnoid spaces are within normal range; there is no hydrocephalus. Orbital Structures: The visualized orbital structures are grossly unremarkable within the limitations of the study. Vascular: Signal voids are noted in the visualized major intracranial vessels. Osseous Structures, Sinuses/Mastoids, Extracranial Soft Tissues: Marrow signal intensity is within normal limits. There is some mucosal thickening in the ethmoid complex and frontal sinuses. MR/MR head/brain wo con IMPRESSION: 1. No acute intracranial process. No evidence for infarction, hemorrhage, extra-axial fluid collection, space-occupying process, mass effect or hydrocephalus. 2. A few punctate left frontal subcortical white matter T2 hyperintensities are noted which are nonspecific findings. 3. Mild paranasal sinus mucosal inflammatory changes. 4. [id number] generalized diffuse brain parenchymal volume loss. Electronically signed by: Guido Rivera MD 06/26/2024 10:27 AM EDT
== END 2024-06-07 13:09 | disposition home or self-care (01) ==
LOC: HO.MRI 13:08
PROVIDERS: PCP Internal Medicine; Visit Provider Psychiatry & Neurology Neurology
DX: G81.91 Hemiplegia, unspecified affecting right dominant side (principal)
CPT/HCPCS: 70551

== ENCOUNTER 2024-06-16 11:49 | Outpatient (REF) | payer MEDICARE, SELFPAY ==
[2024-06-16 13:22] LABS: Estimated Average Glucose 163 mg/dL; Hemoglobin A1c % 7.3 % (<6.0)
[2024-06-16 14:04] LABS: Alanine Aminotransferase 25 U/L (0-31); Albumin Level 4.2 g/dL (3.5-5.0); Alkaline Phosphatase 109 U/L (39-117); Anion Gap 13 (12-20); Aspartate Amino Transferase 25 U/L (5-31); Bilirubin Total 0.4 mg/dL (0.0-1.0); Blood Urea Nitrogen 16 mg/dL (9-16); Calcium 9.4 mg/dL (8.4-10.2); Carbon Dioxide 27 mmol/L (22-29); Chloride 104 mmol/L (96-108); Estimated Glomerular Filt Rate 52; Glucose Random 166 mg/dL (60-115); Potassium 4.5 mmol/L (3.3-5.1); Sodium 139 mmol/L (135-145); Total Protein 7.3 g/dL (6.5-8.0)
== END 2024-06-16 11:50 | disposition home or self-care (01) ==
LOC: HO.LAB 11:49
PROVIDERS: PCP Internal Medicine; Visit Provider Internal Medicine
DX: E11.65 Type 2 diabetes mellitus with hyperglycemia (principal); E78.2 Mixed hyperlipidemia; M79.7 Fibromyalgia; R52 Pain, unspecified
CPT/HCPCS: 36415; 80053; 82550; 83036

== ENCOUNTER 2024-09-28 15:23 | Outpatient (REF) | payer MEDICARE, SELFPAY ==
[2024-09-28 15:39] LABS: MANUAL DIFF FLAG NO
[2024-09-28 16:07] LABS: Basophils Absolute Auto 0.1 X10*3/uL (0.0-0.2); Eosinophils Absolute Auto 0.2 X10*3/uL (0.0-0.4); Eosinophils Percent Auto 2.1 % (0-4); Hematocrit 42.3 % (37.0-47.0); Hemoglobin 13.9 g/dl (12.0-16.0); Imm Gran Abs Auto 0.03 X10*3/uL (0.00-0.03); Imm Gran Pct Auto 0.3 % (0.0-0.4); Lymphocytes Absolute Auto 3.6 X10*3/uL (1.2-4.9); Lymphocytes Percent Auto 35.3 % (20-40); Mean Corpuscular HGB Conc 32.9 g/dl (31.0-35.0); Mean Corpuscular Hemoglobin 30.6 pg (27.0-33.0); Mean Corpuscular Volume 93.2 fL (80.0-98.0); Mean Platelet Volume 10.7 fL (9.4-12.3); Monocytes Absolute Auto 0.7 X10*3/uL (0.1-1.2); Neutrophils Absolute Auto 5.5 x10*3/uL (2.0-8.3); Neutrophils Percent Auto 54.3 % (45-73); Platelet Count 264 X10*3/uL (160-400); Red Blood Count 4.54 X10*6/uL (4.20-5.50); Red Cell Distribution Width 12.4 % (11.0-16.0); White Blood Count 10.2 X10*3/uL (4.8-10.8)
[2024-09-28 16:13] LABS: Estimated Average Glucose 166 mg/dL; Hemoglobin A1C 205.0267 umol/L; Hemoglobin A1c % 7.4 % (<6.0); Total Hemoglobin (HGBA1C) 3552.4441 umol/L
[2024-09-28 16:40] LABS: Alanine Aminotransferase 35 U/L (0-31); Albumin Level 4.4 g/dL (3.5-5.0); Alkaline Phosphatase 123 U/L (39-117); Anion Gap 13 (12-20); Aspartate Amino Transferase 31 U/L (5-31); Bilirubin Total 0.7 mg/dL (0.0-1.0); Blood Urea Nitrogen 17 mg/dL (9-16); Calcium 10.3 mg/dL (8.4-10.2); Carbon Dioxide 27 mmol/L (22-29); Chloride 104 mmol/L (96-108); Cholesterol 224 mg/dL (<200); Estimated Glomerular Filt Rate 53; Glucose Random 156 mg/dL (60-115); HDL Cholesterol 55 mg/dL (>40); LDL Cholesterol Calculated 123 mg/dL (<100); Potassium 4.9 mmol/L (3.3-5.1); Sodium 139 mmol/L (135-145); Total Protein 7.7 g/dL (6.5-8.0); Triglycerides 234 mg/dL (<150)
[2024-09-28 16:59] LABS: Vitamin D 25-OH Total 23.2 ng/mL (>30)
[2024-09-28 17:12] LABS: Creatinine Urine 118.84 mg/dL; Microalbum/Creatinine Ratio Ur 35.3 ug/mg cr (<30)
== END 2024-09-28 15:24 | disposition home or self-care (01) ==
LOC: HO.LAB 15:23
PROVIDERS: PCP Internal Medicine; Visit Provider Internal Medicine
DX: E78.00 Pure hypercholesterolemia, unspecified (principal); I10 Essential (primary) hypertension; E11.9 Type 2 diabetes mellitus without complications; J20.9 Acute bronchitis, unspecified; J30.89 Other allergic rhinitis; M81.8 Other osteoporosis without current pathological fracture; R80.9 Proteinuria, unspecified
CPT/HCPCS: 36415; 80053; 80061; 82043; 82306; 82570; 83036; 85025

== ENCOUNTER 2025-01-31 10:26 | Outpatient (REF) | payer MEDICARE, SELFPAY ==
--- OUTSIDE RECORDS SUMMARY | 2025-01-31 12:11 | XMS_ITS | Clinical Summary ---
Author Organization [employer] Address [address] [place] [address] Care Team Providers Care Busboy Name Role Phone Unavailable Primary Care Provider Unavailabl e Allergies Active Allergy Reactions Criticality Noted Date Comments Acetaminophen 01/23/2019 Atorvastatin 01/23/2019 Cortisone Itching High 06/20/2013 Lisinopril 01/23/2019 Losartan 01/23/2019 Oxycodone 01/23/2019 Medications lisinopril (Prinivil, Zestril) 10 MG split tablet Take 1 tablet by mouth at bed time. Active loratadine (Claritin) 5 mg split tablet Take 1 tablet by mouth at bed time. Active metFORMIN (Glucophage) 850 MG tablet Take 1 tablet by mouth every 12 (twelve) hours. Active Coral Calcium 133-66.7-133 MG-MG-UNIT capsule Active cyclobenzaprine (Flexeril) 10 MG tablet Take 1 tablet by mouth every 12 (twelve) hours. Active glimepiride (Amaryl) 1 MG tablet Take 1 tablet by mouth at bed time. Active Glucosamine-Cho ndroitin 500-400 MG capsule Active ketorolac (Toradol) 10 MG tablet Take 1 tablet by mouth every 6 (six) hours. Active loratadine (Claritin) 10 MG tablet Take 1 tablet by mouth at bed time. Active losartan-hydroC HLOROthiazide (Hyzaar) 50-12.5 MG tablet Take 1 tablet by mouth at bed time. Active meloxicam (Mobic) 7.5 MG tablet Take 1 tablet by mouth at bed time. Active mometasone (Elocon) 0.1 % cream apply by topical route every day a thin layer to the affected area(s) Active naproxen (Naprosyn) 500 MG tablet Take 1 tablet by mouth every 12 (twelve) hours. Active naproxen (Naprosyn) 500 MG tablet TAKE 1 TABLET BY MOUTH TWICE DAILY NEEDED FOR HEADACHE 04/07/2022 Active Sod Fluoride-Potass ium Nitrate (PreviDent 5000 Enamel Protect) 1.1-5 % gel brush at bed time for 2 minutes, expectorate, do not rinse 10/04/2015 Active Social History Tobacco Use Types Packs/Day Years Used Date Smoking Tobacco: Never Passive Smoke Exposure: Never Smokeless Tobacco: Never Tobacco Cessation:Counseling Given: Not Answered Alcohol Use Standard Drinks/Week Comments Never 0 (1 standard drink = 0.6 oz pur e alcohol) Comments Unknown Sex and Gender Information Value Date Recorded Sex Assigned at Female 08/17/2022 10:18 AM EDT Legal Sex Female 10:18 AM EDT Gender Identity Female 08/17/2022 10:18 AM EDT Sexual Orientation Choose not to disclose 2021 10:18 AM EDT Last Filed Vital Signs Vital Sign Reading Time Taken Comments Blood Pressure 124/78 12/11/2022 9:04 AM EST Pulse 76 12/11/2022 9:04 AM EST Temperature - - Respiratory Rate - - Oxygen Saturation - - Inhaled Oxygen Concentration - - Weight - - Height - - Body Mass Index - - Plan of Treatment Health Maintenance Due Date Last Done Comments Dental Oral Exam 1950 Dental X-Ray: Full Mouth 1948 Depression Screening 1948 SDOH Screening 1948 Alcohol/Substance Use Screening 1960 Hepatitis C Screening 1966 DTaP/Tdap/Td Vaccines (1 - Tdap) 1967 Pneumococcal Vaccine: 50+ Years (2 of 2 - PCV) 05/08/2022 05/08/2021, 04/10/2021 Dental Prophylaxis 06/11/2023 12/11/2022 RSV Patients and Patients Aged 60 years or older (1 - 1-dose 75+ series) 2023 Tobacco Screening 12/11/2023 12/11/2022 Dental X-Ray: Bitewings 12/12/2023 12/11/2022 COVID-19 Vaccine (1 - 2023-2 5 season) 2024 Influenza Vaccine (#1) 2024 08/01/2021 Zoster Vaccines Completed 08/04/2021, 05/08/2021, 04/10/2021 HIB Vaccines Aged Out No longer eligi ble based on patient's age to complete this topic HPV Vaccines Aged Out No longer eligi ble based on patient's age to complete this topic Hepatitis A Vaccines Aged Out No long er eligible based on patient's age to complete this topic Hepatitis B Vaccines Aged Out No long er eligible based on patient's age to complete this topic IPV Vaccines Aged Out No longer eligi ble based on patient's age to complete this topic Meningococcal Vaccine Aged Out No asiya toro eligible based on patient's age to complete this topic RSV under 20 months Aged Out No longe r eligible based on patient's age to complete this topic Rotavirus Vaccines Aged Out No longer eligible based on patient's age to complete this topic Procedures Procedure Name Priority Date/Time Associated Diagnosis Comments PROPHYLAXIS - ADULT Routine 12/11/2022 9 :00 AM EST BITEWINGS - 4 RADIOGRAPHIC IMAGES Routine 12/11/2022 9:00 AM EST from Last 3 Months or Most Recently Relevant to Health Maintenance Insurance DENTAL - HSN FULL (MEDICAID)
--- OUTSIDE RECORDS SUMMARY | 2025-01-31 12:11 | XMS_ITS | Encounter Summary ---
Author Organization [email or web address] Address [address] [place] [address] Care Team Providers Care Electric Blanket Packer Name Role Phone Unavailable Primary Care Provider Unavailabl e Encounter Details Date Type Department Care Team (Latest Contact Info) Description 07/11/2019 Abstract [facility] CONVERSIONS Dental, Provider, DDS Social History Tobacco Use Types Packs/Day Years Used Date Smoking Tobacco: Never Assessed Comments Unknown Sex and Gender Information Value Date Recorded Sex Assigned at Female 08/17/2022 10:18 AM EDT Legal Sex Female 10:18 AM EDT Gender Identity Female 08/17/2022 10:18 AM EDT Sexual Orientation Choose not to disclose 2021 10:18 AM EDT documented as of this encounter Plan of Treatment Not on file documented as of this encounter Visit Diagnoses Not on filedocumented in this encounter
--- OUTSIDE RECORDS SUMMARY | 2025-01-31 12:11 | XMS_ITS | Encounter Summary ---
Author Organization [employer] Address [address] [place] [address] Care Team Providers Care Placement Director Name Role Phone Unavailable Primary Care Provider Unavailabl e Encounter Details Date Type Department Care Team (Latest Contact Info) Description 07/25/2021 Abstract [facility] CONVERSIONS Dental, Provider, DDS Social History Tobacco [...]
== END 2025-01-31 10:27 | disposition home or self-care (01) ==
LOC: HO.MAMMO 10:26
PROVIDERS: PCP Internal Medicine; Visit Provider Internal Medicine
DX: Z12.31 Encounter for screening mammogram for malignant neoplasm of breast (principal)
CPT/HCPCS: 77063; 77067

== ENCOUNTER → 2025-01-31 10:30 | Outpatient (BNV) | payer MEDICARE, SELFPAY | PROVIDERS: PCP Internal Medicine; Visit Provider Internal Medicine | DX: Z12.31 Encounter for screening mammogram for malignant neoplasm of breast (principal) | CPT/HCPCS: 77063; 77067 ==

== ENCOUNTER 2025-04-24 16:49 | Outpatient (REF) | payer MEDICARE, SELFPAY ==
[2025-04-24 17:15] LABS: Hemoglobin A1C 335.6387 umol/L; Total Hemoglobin (HGBA1C) 3954.0477 umol/L
[2025-04-24 17:39] LABS: Parathyroid Hormone Intact 148.7 pg/mL (8.7-77.1)
[2025-04-24 17:42] LABS: Alanine Aminotransferase 69 U/L (0-31); Albumin Level 4.9 g/dL (3.5-5.0); Alkaline Phosphatase 134 U/L (39-117); Anion Gap 16 (12-20); Aspartate Amino Transferase 75 U/L (5-31); Blood Urea Nitrogen 14 mg/dL (9-16); Calcium 10.1 mg/dL (8.4-10.2); Carbon Dioxide 22 mmol/L (22-29); Chloride 107 mmol/L (96-108); Cholesterol 229 mg/dL (<200); Estimated Glomerular Filt Rate 39; HDL Cholesterol 56 mg/dL (>40); Potassium 4.7 mmol/L (3.3-5.1); Sodium 140 mmol/L (135-145); Total Protein 8.0 g/dL (6.5-8.0); Triglycerides 247 mg/dL (<150)
== END 2025-04-24 16:50 | disposition home or self-care (01) ==
LOC: HO.LAB 16:49
PROVIDERS: PCP Internal Medicine; Visit Provider Internal Medicine
DX: E11.9 Type 2 diabetes mellitus without complications (principal); E55.9 Vitamin D deficiency, unspecified; E78.2 Mixed hyperlipidemia; M77.9 Enthesopathy, unspecified; R80.8 Other proteinuria; G47.00 Insomnia, unspecified; R51.9 Headache, unspecified
CPT/HCPCS: 36415; 80053; 80061; 82306; 83036; 83970; 84100